=== PATIENT | female | born 1960 | race Caucasian/White ===

== ENCOUNTER 2021-05-23 08:43 | Outpatient (REF) | payer MEDICAID, SELFPAY ==
--- NOTE | ~2021-05-23 | MM_ITS ---
EXAMINATION: MM SCREENING DIGITAL BREAST TOMOSYNTHESIS, BILATERAL CLINICAL INFORMATION: Screening. Asymptomatic. The lifetime risk of breast cancer based on the Tyrer-Cuzick Model is 4.5%. COMPARISON: Mammography: May 31, 2016 and studies dating back to May 19, 2014 TECHNIQUE: Digital breast tomosynthesis is performed in both the craniocaudal and mediolateral oblique views along with computer-aided detection (CAD). Synthesized 2D images are generated from the tomosynthesis. FINDINGS: There are scattered areas of fibroglandular density (ACR BI-RADS breast composition Category b). There are no significant masses, abnormal calcifications, or other abnormalities. MM/MM tomosynthesis screening BI IMPRESSION: There are no significant changes from prior study. ASSESSMENT: BI-RADS 1: Negative RECOMMENDATION: Routine annual mammography screening. This patient's information was entered into a reminder system with a target due date for their next mammogram.
== END 2021-05-23 08:44 | disposition home or self-care (01) ==
LOC: HO.MAMMO 08:43
PROVIDERS: Visit Provider Internal Medicine Geriatric Medicine
DX: Z12.31 Encounter for screening mammogram for malignant neoplasm of breast (principal)
CPT/HCPCS: 77063; 77067

== ENCOUNTER → 2022-04-07 10:51 | Outpatient (BNVA) | payer MEDICAID, SELFPAY | PROVIDERS: PCP Internal Medicine Geriatric Medicine; Visit Provider Orthopaedic Surgery | DX: M65.331 Trigger finger, right middle finger (principal); M65.312 Trigger thumb, left thumb; I26.99 Other pulmonary embolism without acute cor pulmonale | CPT/HCPCS: 99202 ==

== ENCOUNTER → 2022-04-27 13:30 | Day surgery (SDC) | payer MEDICAID, SELFPAY ==
--- NOTE | 2022-04-27 13:49 | PC.NURSE ---
Patient made aware of delay with surgeon & that wait would be approx 2 more hours before she would have procedure. Decision made by patient to cancel at this time & leave hospital. Patient informed to call Dr Alvarez office to reschedule, left waiting room w/ SO.
== END ==
PROVIDERS: PCP Internal Medicine Geriatric Medicine; Visit Provider Orthopaedic Surgery
DX: M65.312 Trigger thumb, left thumb (principal); Z53.29 Procedure and treatment not carried out because of patient's decision for other reasons

== ENCOUNTER 2022-05-18 09:08 | Day surgery (SDC) | payer MEDICAID, SELFPAY ==
--- NOTE | 2022-05-18 07:52 | W.PM.OPN ---
Operative Note Operative Note Date of Service: 05/18/22 Narrative: Operative Note Preop diagnosis: 1. left thumb Trigger finger Postop diagnosis: 1. left thumb Trigger finger Procedure: 1. left thumb A1 isaiah release Surgeon: Tessa Alvarez MD Anesthesia: local block using 1% lidocaine with epinephrine Findings: No locking or catching after A1 isaiah release EBL: Less than 5 mL Tourniquet time: None Specimens: None Complications: None Disposition: Brought to recovery room in stable condition Plan: Follow-up for 10-14 days for wound check and suture removal Indications: The patient is 61 years old, with a left trigger thumb that has been unresponsive to nonoperative management. The risks and benefits of operative treatment including but not limited to risk of damage to blood vessels, nerves, tendons, infection, persistent pain, persistent symptoms, recurrence or possible need for additional surgery were discussed with the patient and the patient wishes to proceed with surgery. Procedure: Once consent was obtained a local block was performed in the preop area using a combination of 1% lidocaine with epinephrine. The patient was then brought back to the operating suite and placed on the operative table in supine position. A tourniquet was applied to the proximal aspect of the left upper extremity and the limb was prepped and draped in a standard surgical fashion. Once assured that we had a good block, a 1.5 cm oblique incision was made centered over the A1 isaiah of the left thumb . The incision was made through the skin to the subcutaneous tissues using a #15 blade. Careful dissection was made down to the level of the A1 isaiah using tenotomy scissors, with care being taken to protect the nearby neurovascular structures. A longitudinal incision was made in the A1 isaiah 1st using a #15 blade, then using tenotomy scissors under direct visualization. The A1 isaiah was noted to be thickened. Following our A1 isaiah release, we no longer saw any locking or catching of the digit with flexion and extension. Once satisfied with our A1 isaiah release the wound was copiously irrigated with normal saline and hemostasis was obtained with a brief period of local pressure. The skin edges were reapproximated with some 5.0 nylon suture material and a sterile dressing was applied. The patient appears to have tolerated the procedure well and with no complications. All digits were well vascularized at the conclusion of the case.
[2022-05-18 10:19] VITALS: BMI 44.4
--- NOTE | 2022-05-18 11:04 | MHC.SHP ---
Pre-Procedural Eval Section A Date of Service: 05/18/22 The patient is an INPATIENT: No Changes since office visit: No Cold of Flu in the past 2 weeks, No New Medical Problems, No Changes in Medication and No Patient answered all questions The History & Physical has been completed within 30 days and I have reviewed it.: Yes Section B Chief Complaint: Trigger thumb, left thumb Allergies: Allergies Allergy/AdvReac Type Severity Reaction Status Date / Time aspirin Allergy Unknown Unknown Verified 04/07/22 11:03 metformin Allergy Unknown unknown Verified 04/07/22 11:03 lisinopril Allergy cough Verified 04/07/22 11:03 seafood Allergy Anaphylaxis Verified 05/18/22 10:15 Plan I have reviewed the history and physical and performed a pertinent physical examination on my patient. No changes have occurred unless specified.
[2022-05-18 11:34] VITALS: BP 146/89; PULSE 75; RESP 18; O2SAT 99
== END 2022-05-18 12:13 ==
LOC: HO.SSS 09:08
PROVIDERS: PCP Internal Medicine Geriatric Medicine; Visit Provider Orthopaedic Surgery
PROC: (CPT 26055; principal; 2022-05-18 10:30)
DX: M65.312 Trigger thumb, left thumb (principal); I10 Essential (primary) hypertension; E11.9 Type 2 diabetes mellitus without complications; G62.9 Polyneuropathy, unspecified; I26.99 Other pulmonary embolism without acute cor pulmonale; Z79.01 Long term (current) use of anticoagulants; Z88.8 Allergy status to other drugs, medicaments and biological substances; Z87.891 Personal history of nicotine dependence
CPT/HCPCS: 26055; J0171

== ENCOUNTER 2022-08-02 13:48 | Outpatient (REF) | payer MEDICAID, SELFPAY ==
--- NOTE | ~2022-08-02 | MM_ITS ---
EXAMINATION: MM SCREENING DIGITAL BREAST TOMOSYNTHESIS, BILATERAL CLINICAL INFORMATION: Screening. Asymptomatic. The lifetime risk of breast cancer based on the Tyrer-Cuzick Model is 4.2%. COMPARISON: Mammography: May 23, 2021 and studies dating back to December 10, 2015 TECHNIQUE: Digital breast tomosynthesis is performed in both the craniocaudal and mediolateral oblique views along with computer-aided detection (CAD). Synthesized 2D images are generated from the tomosynthesis. FINDINGS: There are scattered areas of fibroglandular density (ACR BI-RADS breast composition Category b). There are no new significant masses, abnormal calcifications, or other abnormalities. MM/MM tomosynthesis screening BI IMPRESSION: No significant changes from prior exam. ASSESSMENT: BI-RADS 1: Negative RECOMMENDATION: Routine annual mammography screening. This patient's information was entered into a reminder system with a target due date for their next mammogram.
== END 2022-08-02 13:49 | disposition home or self-care (01) ==
LOC: HO.MAMMO 13:48
PROVIDERS: Visit Provider Internal Medicine Geriatric Medicine
DX: Z12.31 Encounter for screening mammogram for malignant neoplasm of breast (principal)
CPT/HCPCS: 77063; 77067

== ENCOUNTER 2023-03-28 14:15 | Outpatient (REF) | payer MEDICAID, SELFPAY ==
--- NOTE | ~2023-03-28 | XR_ITS ---
EXAMINATION: XR LUMBOSACRAL SPINE CLINICAL INFORMATION: Worsening lower back pain with sciatica. COMPARISON: Abdominal ultrasound dated 03/28/2017; MRI abdomen dated 118. TECHNIQUE: AP and lateral views of the lumbar spine and lateral view of the lumbosacral junction. FINDINGS: There is bony demineralization. Vertebral body heights and alignment are normal. There is mild posterior disc space narrowing at L4-L5 and L5-S1. No acute fracture or spondylolisthesis is seen. There is multi-level marked lower thoracic and mild to moderate lumbar spondylosis. The posterior elements are intact. There is facet arthropathy, most pronounced at L5-S1. The paravertebral soft tissues are unremarkable. A 7 mm left renal calculus is redemonstrated, consistent with prior ultrasound findings. Within the left upper quadrant, a 1.1 cm peripherally calcified splenic artery aneurysm is questioned. There are right upper quadrant surgical clips. XR/XR lumbar spine 2-3V IMPRESSION: 1. There is mild degenerative disc disease at L4-L5 and L5-S1. 2. There is multi-level thoracolumbar spondylosis. 3. There is facet arthropathy at L5-S1. 4. A 7 mm left renal calculus is redemonstrated. 5. A 1.1 cm partially calcified splenic artery aneurysm is questioned.
== END 2023-03-28 14:16 | disposition home or self-care (01) ==
LOC: HO.HHCX 14:15
PROVIDERS: Visit Provider Internal Medicine Geriatric Medicine
DX: M54.42 Lumbago with sciatica, left side (principal); M54.41 Lumbago with sciatica, right side
CPT/HCPCS: 72100

== ENCOUNTER 2023-03-28 14:55 | Outpatient (REF) | payer MEDICAID, SELFPAY ==
[2023-03-28 17:09] LABS: Anion Gap 9 (12-20); Blood Urea Nitrogen 9 mg/dL (9-16); Calcium 8.9 mg/dL (8.4-10.2); Carbon Dioxide 24 mmol/L (22-29); Chloride 108 mmol/L (96-108); Estimated Glomerular Filt Rate > 60; Glucose Random 98 mg/dL (60-115); Potassium 3.8 mmol/L (3.3-5.1); Sodium 137 mmol/L (135-145)
== END 2023-03-28 14:56 | disposition home or self-care (01) ==
LOC: HO.HHCL 14:55
PROVIDERS: Visit Provider Internal Medicine Geriatric Medicine
DX: I10 Essential (primary) hypertension (principal)
CPT/HCPCS: 36415; 80048

== ENCOUNTER 2023-05-24 16:19 | Outpatient (REF) | payer MEDICAID, SELFPAY ==
[2023-05-25 13:12] LABS: BV Int Neg Control Negative (Negative); BV Int Pos Control Positive (Positive)
== END 2023-05-24 16:20 | disposition home or self-care (01) ==
LOC: HO.HHCLNP 16:19
PROVIDERS: Visit Provider Advanced Practice Midwife
DX: N89.8 Other specified noninflammatory disorders of vagina (principal); N39.46 Mixed incontinence
CPT/HCPCS: 87086; 87088; 87186; 87480; 87510; 87660

== ENCOUNTER 2023-09-05 13:13 | Outpatient (AMB) | payer MEDICAID, SELFPAY ==
[2023-09-05 14:02] VITALS: BP 177/89; PULSE 70; RESP 20; O2SAT 98; BMI 45.4
--- NOTE | 2023-09-05 14:02 | MHC.OFFVIS ---
Intake Vital Signs 09/05/23 14:02 Height 5 ft 1 in Weight 240 lb 2 oz BMI 45.4 BP 177/89 H Blood Pressure Location Lt brachial Position Sitting Respiration 20 Pulse 70 Pulse Source Pulse Oximeter Pulse Oximetry (%) 98 Oxygen Delivery Method Room Air Intake Visit Reasons: Low Back Pain with Sciatica - Confirmed Allergies aspirin Allergy (Unknown, Verified 09/05/23 13:56) Unknown metformin Allergy (Unknown, Verified 09/05/23 13:56) unknown lisinopril Allergy (Verified 09/05/23 13:56) cough seafood Allergy (Verified 09/05/23 13:56) Anaphylaxis HPI HPI Comments History of Present Illness Details Cynthia is a very pleasant 63-year-old female who presents the office today, accompanied by her son, for evaluation management of her chronic lower back pain. Patient complains of pain to her lower back with radiation down both legs. She does endorse some burning numbness and tingling to both lower extremities but is known diabetic with diabetic peripheral neuropathy. She denies red flag symptoms including loss of bowel, bladder saddle anesthesia. Her pain today is rated as a 10/10, worse with any movement or activity. Patient has been told in the past that she has multiple herniated discs, though her most recent MRI was greater than 10 years ago. She had a recent x-ray, results as per below. She has attempted physical therapy but that made her pain worse. She is continued to try home exercise program without improvement of her symptoms. She is currently taking Coumadin so she is unable to take nonsteroidal anti-inflammatory medications. Has been taking gabapentin, oxycodone but pain persists. She is tried topical creams and patches without improvement of her symptoms. She was formally a patient of [facility] pain management in [place], she had repeat steroid injections to her back which did help some with the pain but ultimately greatly elevated her blood sugar and at 1 point she was hospitalized for the hyperglycemia. She does not want to proceed with steroid injections. In terms of initial is described as spasming, stabbing, sharp, tingling, pins and needles and throbbing. Pain is constant throughout the day, currently rated as 10/10. Pain is negatively impacting patient's general activity, normal work, enjoyment of life, mobility and recreational activities. Patient is currently taking Coumadin for past medical history of pulmonary embolism. [facility] Medical History Asthma Diabetes High blood pressure On home O2 PILO (obstructive sleep apnea) Pulmonary embolism Social History Patient Tobacco Use Status: Former Tobacco user Current occupational status: disabled Current occupation: rt hand Review of Systems Const All systems reviewed & are unremarkable except as noted in HPI and below Physical Exam Vital Signs: Last Vital Signs Pulse 70 09/05/23 14:02 Resp 20 09/05/23 14:02 BP 177/89 H 09/05/23 14:02 Pulse Ox 98 09/05/23 14:02 Oxygen Delivery Method Room Air 09/05/23 14:02 BMI result Body Mass Index 45.4 General: awake, alert, oriented. Answers questions appropriately. Fully engaged in examination. Appears uncomfortable Skin: warm, dry, intact HEENT: Normocephalic. Hearing intact. Cardiac: External chest normal in appearance. Respiratory: No cough, audible wheezing or stridor. Abdomen: without gross distension. MS: No obvious swelling or deformities. Able to transition from sit to stand unassisted. Ambulates with bilaterally normal heel strike and toe off Bilateral lower extremity strength 5/5 SLR with and without dorsiflexion positive bilaterally Significantly tender over lumbar midline vertebrae and lumbar paraspinal muscles Nontender over PSIS Facet loading positive bilaterally AMANDA negative bilaterally Neurological: Oriented to person, place, time and situation. Thought process intact. No gait abnormalities appreciated. Psychiatric: Appropriate mood and affect. Good judgment and insight. Results Reviewed Results Reviewed: XR/XR lumbar spine 2-3V FINDINGS: There is bony demineralization. Vertebral body heights and alignment are normal. There is mild posterior disc space narrowing at L4-L5 and L5-S1. No acute fracture or spondylolisthesis is seen. There is multi-level marked lower thoracic and mild to moderate lumbar spondylosis. The posterior elements are intact. There is facet arthropathy, most pronounced at L5-S1. The paravertebral soft tissues are unremarkable. A 7 mm left renal calculus is redemonstrated, consistent with prior ultrasound findings. Within the left upper quadrant, a 1.1 cm peripherally calcified splenic artery aneurysm is questioned. There are right upper quadrant surgical clips. IMPRESSION: 1. There is mild degenerative disc disease at L4-L5 and L5-S1. 2. There is multi-level thoracolumbar spondylosis. 3. There is facet arthropathy at L5-S1. 4. A 7 mm left renal calculus is redemonstrated. 5. A 1.1 cm partially calcified splenic artery aneurysm is questioned. Assessment & Plan Assessment & Plan (1) Lumbar spondylosis: Code(s): M47.816 - Spondylosis without myelopathy or radiculopathy, lumbar region (2) Lumbar radiculopathy: Code(s): M54.16 - Radiculopathy, lumbar region (3) Diabetic peripheral neuropathy: Code(s): E11.42 - Type 2 diabetes mellitus with diabetic polyneuropathy Marco A Marie is a very pleasant 63-year-old female who presented to the office today for evaluation management of her chronic lower back pain. History, physical exam and provocative testing consistent with lumbar spondylosis and lumbar radiculopathy Patient has exhausted conservative treatment including physical therapy, home exercise program, [id number] medications, topical medications, muscle relaxers, prescription opioids and cortisone injections. Recent x-ray reviewed. Given patient's worsening back pain with radiation down both legs, SLR positive bilaterally, MRI of the lumbar spine ordered for further evaluation. She requests open MRI at [facility] as she lives in [place] her son is her transportation to appointments Patient will follow-up for review of MRI to evaluate the plan. Discussed option for bilateral diagnostic L3-L4 DR L5 MBB with local anesthetic, potential for RFA if good results. Patient has known diabetic, most recent A1c was in February 2023 of 7.9. Previous attempts at steroid injections caused hospitalization due to significantly elevated sugars. She does not want to proceed with anything that would require steroids. Patient is currently taking Coumadin for history of pulmonary embolisms. She would need clearance prior to proceeding with any injections or procedures All questions and concerns were answered, patient agrees with the plan. Follow-up after MRI, sooner if needed. Orders: Orders MR lumbar spine wo con Today M47.816 - Spondylosis without myelopathy or radiculopathy, lumbar region, M54.16 - Radiculopathy, lumbar region Coding Level of Care Code New Pt Level 4 (11884) Diagnoses Lumbar spondylosis M47.816 Lumbar radiculopathy M54.16 Diabetic peripheral neuropathy E11.42
== END 2023-09-05 14:34 | disposition home or self-care (01) ==
PROVIDERS: PCP Internal Medicine Geriatric Medicine; Visit Provider Registered Nurse Emergency
DX: M47.816 Spondylosis without myelopathy or radiculopathy, lumbar region (principal); M54.16 Radiculopathy, lumbar region; E11.42 Type 2 diabetes mellitus with diabetic polyneuropathy
CPT/HCPCS: 99204

== ENCOUNTER → 2023-09-05 13:13 | Outpatient (BNVA) | payer MEDICAID, SELFPAY | PROVIDERS: PCP Internal Medicine Geriatric Medicine; Visit Provider Registered Nurse Emergency | DX: M47.816 Spondylosis without myelopathy or radiculopathy, lumbar region (principal); M54.16 Radiculopathy, lumbar region; E11.42 Type 2 diabetes mellitus with diabetic polyneuropathy | CPT/HCPCS: 99212 ==

== ENCOUNTER 2023-09-28 10:44 | Outpatient (AMB) | payer MEDICAID, SELFPAY ==
--- NOTE | 2023-09-28 10:51 | MHC.OFFVIS ---
Intake Vital Signs 09/28/23 10:52 Height 5 ft 1 in Weight 243 lb BMI 45.9 BP 161/84 H Blood Pressure Location Lt radial Position Sitting Respiration 20 Pulse 84 Pulse Source Pulse Oximeter Pulse Oximetry (%) 97 Oxygen Delivery Method Room Air Intake Visit Reasons: MRI Results (Completed at [facility]) Allergies aspirin Allergy (Unknown, Verified 09/28/23 10:52) Unknown metformin Allergy (Unknown, Verified 09/28/23 10:52) unknown lisinopril Allergy (Verified 09/28/23 10:52) cough seafood Allergy (Verified 09/28/23 10:52) Anaphylaxis HPI HPI Comments History of Present Illness Details Patient presents to the office today, accompanied by her family, for follow-up and review of recent MRI. MRI reviewed, results as per below Patient continues with 10/10 lower back pain, midline axial. She does report some burning, numbness and tingling to both lower extremities she is diabetic with diabetic neuropathy. Denies red flag symptoms including loss of bowel, bladder or saddle anesthesia Patient currently on Coumadin, unable to take nonsteroidal anti-inflammatory medications. She has tried physical therapy and home exercise program which she was unable to tolerate it because it caused worsening pain. She was given a back brace and was unable to tolerate use of that also secondary to worsening pain. Previously underwent steroid injections at [facility] pain management but they cause significantly elevated blood sugars and required hospitalization. At [facility] she required injections to be performed under sedation. Prior: Cynthia is a very pleasant 63-year-old female who presents the office today, accompanied by her family, for evaluation management of her chronic lower back pain. Patient complains of pain to her lower back with radiation down both legs. She does endorse some burning numbness and tingling to both lower extremities but is known diabetic with diabetic peripheral neuropathy. She denies red flag symptoms including loss of bowel, bladder saddle anesthesia. Her pain today is rated as a 10/10, worse with any movement or activity. Patient has been told in the past that she has multiple herniated discs, though her most recent MRI was greater than 10 years ago. She had a recent x-ray, results as per below. She has attempted physical therapy but that made her pain worse. She is continued to try home exercise program without improvement of her symptoms. She is currently taking Coumadin so she is unable to take nonsteroidal anti-inflammatory medications. Has been taking gabapentin, oxycodone but pain persists. She is tried topical creams and patches without improvement of her symptoms. She was formally a patient of [facility] pain management in [place], she had repeat steroid injections to her back which did help some with the pain but ultimately greatly elevated her blood sugar and at 1 point she was hospitalized for the hyperglycemia. She does not want to proceed with steroid injections. In terms of initial is described as spasming, stabbing, sharp, tingling, pins and needles and throbbing. Pain is constant throughout the day, currently rated as 10/10. Pain is negatively impacting patient's general activity, normal work, enjoyment of life, mobility and recreational activities. Patient is currently taking Coumadin for past medical history of pulmonary embolism. [facility] Medical History Asthma Diabetes High blood pressure On home O2 PILO (obstructive sleep apnea) Pulmonary embolism Social History Patient Tobacco Use Status: Former Tobacco user Current occupational status: disabled Current occupation: rt hand Review of Systems Const All systems reviewed & are unremarkable except as noted in HPI and below Physical Exam Vital Signs: Last Vital Signs Pulse 84 09/28/23 10:52 Resp 20 09/28/23 10:52 BP 161/84 H 09/28/23 10:52 Pulse Ox 97 09/28/23 10:52 Oxygen Delivery Method Room Air 09/28/23 10:52 BMI result Body Mass Index 45.9 General: awake, alert, oriented. Answers questions appropriately. Fully engaged in examination. Appears uncomfortable Skin: warm, dry, intact HEENT: Normocephalic. Hearing intact. Cardiac: External chest normal in appearance. Respiratory: No cough, audible wheezing or stridor. Abdomen: without gross distension. MS: No obvious swelling or deformities. Able to transition from sit to stand unassisted. Ambulates with bilaterally normal heel strike and toe off Bilateral lower extremity strength 5/5 Facet loading positive bilaterally Neurological: Oriented to person, place, time and situation. Thought process intact. Psychiatric: Appropriate mood and affect. Good judgment and insight. Results Reviewed Results Reviewed: 09/13/2023 Assessment & Plan Assessment & Plan (1) Lumbar spondylosis: Code(s): M47.816 - Spondylosis without myelopathy or radiculopathy, lumbar region (2) Lumbar radiculopathy: Code(s): M54.16 - Radiculopathy, lumbar region (3) Diabetic peripheral neuropathy: Code(s): E11.42 - Type 2 diabetes mellitus with diabetic polyneuropathy Marco A Marie is a very pleasant 63-year-old female who presented back to the office today for follow-up, review recent MRI History, physical exam and provocative testing consistent with lumbar spondylosis Patient has exhausted conservative treatment including physical therapy, home exercise program, [id number] medications, topical medications, muscle relaxers, prescription opioids and cortisone injections. Discussed option for bilateral diagnostic L3-L4 DR L5 MBB with local anesthetic under sedation, potential for RFA if good results. Patient has known diabetic, most recent A1c was in February 2023 of 7.9. Previous attempts at steroid injections caused hospitalization due to significantly elevated sugars. She does not want to proceed with anything that would require steroids. She required sedation for previous procedures, procedures here also be done under sedation. Patient is currently taking Coumadin for history of pulmonary embolisms. She would need clearance prior to proceeding with any injections or procedures All questions and concerns were answered, patient agrees with the plan. Follow-up after injections, sooner if needed. Coding Level of Care Code Est Pt Level 3 (04053) Diagnoses Lumbar spondylosis M47.816 Lumbar radiculopathy M54.16 Diabetic peripheral neuropathy E11.42
[2023-09-28 10:52] VITALS: BP 161/84; PULSE 84; RESP 20; O2SAT 97; BMI 45.9
== END 2023-09-28 11:15 | disposition home or self-care (01) ==
PROVIDERS: PCP Internal Medicine Geriatric Medicine; Visit Provider Registered Nurse Emergency
DX: M47.816 Spondylosis without myelopathy or radiculopathy, lumbar region (principal); M54.16 Radiculopathy, lumbar region; E11.42 Type 2 diabetes mellitus with diabetic polyneuropathy
CPT/HCPCS: 99213

== ENCOUNTER → 2023-09-28 10:44 | Outpatient (BNVA) | payer MEDICAID, SELFPAY | PROVIDERS: PCP Internal Medicine Geriatric Medicine; Visit Provider Registered Nurse Emergency | DX: M47.26 Other spondylosis with radiculopathy, lumbar region (principal); E11.42 Type 2 diabetes mellitus with diabetic polyneuropathy; I26.99 Other pulmonary embolism without acute cor pulmonale; Z79.01 Long term (current) use of anticoagulants; Z99.81 Dependence on supplemental oxygen | CPT/HCPCS: 99212 ==

== ENCOUNTER 2023-10-19 12:44 | Outpatient (REF) | payer MEDICAID, SELFPAY ==
[2023-10-19 16:29] LABS: MANUAL DIFF FLAG NO
[2023-10-19 16:37] LABS: Basophils Absolute Auto 0.1 X10*3/uL (0.0-0.2); Basophils Percent Auto 0.6 % (0-2); Eosinophils Absolute Auto 0.2 X10*3/uL (0.0-0.4); Eosinophils Percent Auto 2.1 % (0-4); Hematocrit 40.5 % (37.0-47.0); Hemoglobin 12.9 g/dl (12.0-16.0); Imm Gran Abs Auto 0.04 X10*3/uL (0.00-0.03); Imm Gran Pct Auto 0.5 % (0.0-0.4); Lymphocytes Absolute Auto 3.4 X10*3/uL (1.2-4.9); Lymphocytes Percent Auto 39.8 % (20-40); Mean Corpuscular HGB Conc 31.9 g/dl (31.0-35.0); Mean Corpuscular Hemoglobin 27.4 pg (27.0-33.0); Mean Corpuscular Volume 86.2 fL (80.0-98.0); Mean Platelet Volume 9.7 fL (9.4-12.3); Monocytes Absolute Auto 0.8 X10*3/uL (0.1-1.2); Monocytes Percent Auto 9.1 % (2-11); Neutrophils Absolute Auto 4.1 x10*3/uL (2.0-8.3); Neutrophils Percent Auto 47.9 % (45-73); Platelet Count 354 X10*3/uL (160-400); Red Cell Distribution Width 14.1 % (11.0-16.0); White Blood Count 8.5 X10*3/uL (4.8-10.8)
[2023-10-19 17:09] LABS: Alanine Aminotransferase 13 U/L (0-31); Albumin Level 3.6 g/dL (3.5-5.0); Alkaline Phosphatase 96 U/L (39-117); Anion Gap 13 (12-20); Aspartate Amino Transferase 14 U/L (5-31); Bilirubin Total 0.3 mg/dL (0.0-1.0); Blood Urea Nitrogen 14 mg/dL (9-16); Calcium 9.6 mg/dL (8.4-10.2); Carbon Dioxide 24 mmol/L (22-29); Chloride 105 mmol/L (96-108); Cholesterol 227 mg/dL (<200); Estimated Glomerular Filt Rate > 60; Glucose Random 105 mg/dL (60-115); HDL Cholesterol 43 mg/dL (>40); LDL Cholesterol Calculated 156 mg/dL (<100); Potassium 4.3 mmol/L (3.3-5.1); Sodium 138 mmol/L (135-145); Total Protein 8.5 g/dL (6.5-8.0); Triglycerides 142 mg/dL (<150)
[2023-10-19 17:14] LABS: Creatinine Urine 120.05 mg/dL; Microalbum/Creatinine Ratio Ur 157.4 ug/mg cr (<30)
== END 2023-10-19 12:45 | disposition home or self-care (01) ==
LOC: HO.HHCL 12:44
PROVIDERS: Visit Provider Internal Medicine Geriatric Medicine
DX: E11.69 Type 2 diabetes mellitus with other specified complication (principal); Z79.4 Long term (current) use of insulin
CPT/HCPCS: 36415; 80053; 80061; 82043; 82570; 85025

== ENCOUNTER 2023-11-09 10:30 | Day surgery (SDC) | payer MEDICAID, SELFPAY ==
--- NOTE | 2023-11-08 11:42 | HO.ANESPROP2 ---
Documented by User: Viridiana Shah NP 11/08/23 11:44 HPI - Anesthesia Eval Consult details Narrative: 63yo F for Bilateral Diagnostic L3-L4-DR L5 Medial Branch Block Coumadin for PE PILO with O2 @ 2L QHS PMFSH Active Problems Active Problems: All Active Problems Diabetic peripheral neuropathy (Acute) Lumbar radiculopathy (Acute) Lumbar spondylosis (Acute) Trigger thumb, left thumb (Acute) Trigger finger, right middle finger (Acute) Past Medical History Medical History Asthma Diabetes High blood pressure On home O2 PILO (obstructive sleep apnea) Pulmonary embolism Social History Social History Patient Tobacco Use Status: Former Tobacco user Use of substances other than those prescribed or required for medical reasons: No Are you DNR?: No Advance Directives: No Advance Directives Information Provided: Yes Current occupational status: disabled Current occupation: rt hand Meds Allergies Allergy/AdvReac Type Severity Reaction Status Date / Time aspirin Allergy Unknown Unknown Verified 09/28/23 10:52 metformin Allergy Unknown unknown Verified 09/28/23 10:52 lisinopril Allergy cough Verified 09/28/23 10:52 seafood Allergy Anaphylaxis Verified 09/28/23 10:52 Home Medications ?Medication ?Instructions ?Recorded ?Confirmed ?Last Taken ?Type atorvastatin 40 mg tablet 40 mg PO DAILY 04/07/22 Unknown History eszopiclone 3 mg tablet 3 mg PO BEDTIME 04/07/22 Unknown History gabapentin 300 mg capsule 300 mg PO DAILY 04/07/22 Unknown History insulin degludec 200 unit/mL (3 56 unit subcut BID 04/07/22 Unknown History mL) subcutaneous pen (Tresiba FlexTouch U-200 insulin) insulin lispro 100 unit/mL 1 sliding scale dose subcut 04/07/22 Unknown History subcutaneous cartridge (Humalog USEASDIRECTD U-100 Insulin) lorazepam 0.5 mg tablet 0.5 mg PO DAILY PRN 04/07/22 Unknown History losartan 50 mg tablet 50 mg PO DAILY 04/07/22 Unknown History omeprazole 20 mg capsule,delayed 20 mg PO DAILY 04/07/22 Unknown History release warfarin 5 mg tablet 5 mg PO DAILY 04/07/22 Unknown History oxycodone 10 mg tablet 10 mg PO BID PRN 02/21/24 Unknown History warfarin 1 mg tablet 1 mg PO DAILY 09/05/23 Unknown History Exam Pertinent Lab Results Pertinent Lab Results: Laboratory Tests 10/19/23 12:48 WBC 8.5 Hgb 12.9 Hct 40.5 Plt Count 354 Sodium 138 Potassium 4.3 Chloride 105 Carbon Dioxide 24 BUN 14 Creatinine 0.72 Assessment and Plan Assessment Anesthesia Assessment: Chart Reviewed Documented by User: Eder Wynn MD 11/09/23 11:01 [facility] Past Medical History Medical History Asthma Diabetes High blood pressure On home O2 PILO (obstructive sleep apnea) Pulmonary embolism Family History Family history of problems with anesthesia: No Surgical History History of Problems with Anesthesia: No Social History Social History Patient Tobacco Use Status: Former Tobacco user Use of substances other than those prescribed or required for medical reasons: No Are you DNR?: No Advance Directives: No Advance Directives Information Provided: Yes Current occupational status: disabled Current occupation: rt hand Meds Allergies Allergy/AdvReac Type Severity Reaction Status Date / Time aspirin Allergy Unknown Unknown Verified 09/28/23 10:52 metformin Allergy Unknown unknown Verified 09/28/23 10:52 lisinopril Allergy cough Verified 09/28/23 10:52 seafood Allergy Anaphylaxis Verified 09/28/23 10:52 Home Medications ?Medication ?Instructions ?Recorded ?Confirmed ?Last Taken ?Type atorvastatin 40 mg tablet 40 mg PO DAILY 04/07/22 Unknown History eszopiclone 3 mg tablet 3 mg PO BEDTIME 04/07/22 Unknown History gabapentin 300 mg capsule 300 mg PO DAILY 04/07/22 Unknown History insulin degludec 200 unit/mL (3 56 unit subcut BID 04/07/22 Unknown History mL) subcutaneous pen (Tresiba FlexTouch U-200 insulin) insulin lispro 100 unit/mL 1 sliding scale dose subcut 04/07/22 Unknown History subcutaneous cartridge (Humalog USEASDIRECTD U-100 Insulin) lorazepam 0.5 mg tablet 0.5 mg PO DAILY PRN 04/07/22 Unknown History losartan 50 mg tablet 50 mg PO DAILY 04/07/22 Unknown History omeprazole 20 mg capsule,delayed 20 mg PO DAILY 04/07/22 Unknown History release warfarin 5 mg tablet 5 mg PO DAILY 04/07/22 Unknown History oxycodone 10 mg tablet 10 mg PO BID PRN 09/05/23 Unknown History warfarin 1 mg tablet 1 mg PO DAILY 09/05/23 Unknown History Exam Airway Mallampati Class: IV TM Dist: <=3cm Neck ROM: Full Loose/Missing/Broken Teeth: Yes (broken 13) Heart: rrr Lungs: cta Assessment and Plan Assessment Anesthesia Assessment: Anesthesia Plan Discussed Final Anesthetic Review Family History of Problems with Anesthesia: No History of Problems with Anesthesia: No NPO: Yes ASA Class: III Final Preanesthetic Review: No Changes in Pt Med Stat, Meds/Allgs Chart Reviewed, Consent Obtained/Reviewed and Anes Risks/Benef Reviewed Patient Risk: Intermediate Procedure Risk: Low Anesthetic Plan Anesthetic Plan: MAC: Disposition: Standard PACU
[2023-11-09] VITALS (9 sets, daily range): BP systolic 117–149; BP diastolic 60–86; PULSE 68–81; RESP 13–20; TEMP 36–36.3; O2SAT 94–97; BMI 47.2
--- NOTE | ~2023-11-09 | FL_ITS ---
EXAMINATION: XR FLUOROSCOPY WITH IMAGES CLINICAL INFORMATION: L5 nerve block COMPARISON: 03/28/2023 TECHNIQUE: Fluoroscopy Supervised By: Physician. Fluoroscopy Time: 0.7 minutes. Cumulative Dose: 25.9 mGy. DAP: 5.62 Gycm2. Images: 5. FINDINGS: Fluoroscopy is provided which shows the needle tip overlying the right L5 facet region. Some contrast has been injected. FL/FL guidance in OR IMPRESSION: Fluoroscopy as described.
--- NOTE | 2023-11-09 10:55 | MHC.SHP ---
Pre-Procedural Eval Section A - 24 Hr Update-Section A only Date of Service: 11/09/23 Changes since office visit: Yes Patient answered all questions The patient has been examined within 24 hours of the surgical procedure. The History & Physical has been completed within 30 days and I have reviewed it.: No Section B - Complete if H&P > 30 days Chief Complaint: Spondylosis without myelopathy or radiculopathy, Details of Present Illness: As above Relevant Family History (Specify if Yes): No Relevant Social History: None Present Medications: see Short Stay Collaborative assessment Medical History: No relevant PMH History of Previous Operations: No relevant previous surgery Allergies: Allergies Allergy/AdvReac Type Severity Reaction Status Date / Time aspirin Allergy Unknown Unknown Verified 09/28/23 10:52 metformin Allergy Unknown unknown Verified 09/28/23 10:52 lisinopril Allergy cough Verified 09/28/23 10:52 seafood Allergy Anaphylaxis Verified 09/28/23 10:52 Review of Systems Sugical H&P ROS: Negative: Cardiovascular, Respiratory, Neurological, Psychiatric, Hem-Onc, Allergic/Immunologic, Gastrointestinal, Genitourinary, Integumentary and Eyes/Ears/Nose/Throat and Yes, Specify: Constitution (Morbid obesity), Musculoskeletal (Spondylosis lumbar) and Endocrine (Diabetes type 2) Exam Surgical H&P Exam: Normal: HEENT, Normal: Heart, Normal: Lungs, Normal: Extremities, Normal: Skin and Normal: Neurological and Significant Findings: Abdomen (Enlarged due to fat) Plan I have reviewed the history and physical and performed a pertinent physical examination on my patient. No changes have occurred unless specified. Time Spent With Patient Time: Total time managing care of this patient today __5__ minutes.
[2023-11-09] MEDS: Lactated Ringers 1,000 ML 100 ML IVCONT (11:15)
[2023-11-09 11:16] LABS: Glucose, Whole Blood 130 mg/dL (60-115)
[2023-11-09 11:31] LABS: INTERNATIONAL NORM RATIO 1.1 (0.9-1.1); Prothrombin Time 13.8 SEC (11.1-13.3)
--- NOTE | 2023-11-09 12:59 | PM.OP ---
Brief Operative Note Date of Service: 11/09/23 Pre-op diagnosis: Spondylosis lumbar without myelopathy or radiculopathy Post-op diagnosis: same Procedure: Diagnostic medial branch block L3-L4 does ramus L5 bilateral Surgeon: Caldeorn Troncoso MD Anesthesia: MAC Was an Swimming Pool Serviceperson used for this Procedure?: No Estimated blood loss (mL): 1 Condition: stable Disposition: PACU
--- NOTE | 2023-11-09 13:00 | W.PM.OPN ---
Operative Note Operative Note Date of Service: 11/09/23 Narrative: Diagnostic medial branch block L3,L4 dorsal ramus L5 bilateral.? ? ?Informed consent was explained to the patient. All questions were explained and? answered.? The patient was taken inside the operating room where she was positioned prone on the operating table. [employer] [place] [employer] monitors were applied and patient was minimally sedated. Time-out was performed delineating correct site, side, the nature of the procedure, patient's allergy, . All operating room staff was participating in OR time-out procedure. ? ? The lower back was prepped with ChloraPrep and draped with sterile towels.? C-arm was brought over the operating field and sq picture of L4-, L5 vertebra and S1 AREA were delineated on the screen.? Point of interest were delineated as confluence of superior articular process of L4 and L5 vertebra bilaterally with corresponding transverse processes as well as confluence of the sacral alae bilaterally with superior articular process of S1.? The projection of the point of interest to the skin were injected with the small amount of local anesthetic lidocaine 2% 1-1.5 cc.? After that 22 gauge 3.5 inch spinal needle was driven sequentially to the points of interest in tunnel vision fashion. After needles gently contacted the bone at the point of interests the needle was injected with small amount of the contrast.? The injection of the contrast did not demonstrate any intravascular or intrathecal spread of the contrast.? After that injection of the? ropivacaine 0.5%-1cc was performed at each needle location.??after that the needles were removed and Bandaids were applied. ? Upon completion of the injections? needle was? removed and sterile Band-Aids were applied.? The patient tolerated procedure very well.
[2023-11-09] MEDS: fentaNYL citrate/PF 100 MCG/2 ML VIAL 25 MCG IVPUSH ×4 (13:48→14:07)
[2023-11-09] MEDS: Acetaminophen 325 MG TABLET 650 MG PO (14:15)
== END 2023-11-09 14:40 | disposition home or self-care (01) ==
PROVIDERS: Nurse Practitioner; Registered Nurse Emergency; PCP Internal Medicine Geriatric Medicine; Visit Provider Anesthesiology
PROC: (CPT 64493; principal; 2023-11-09 11:30)
DX: M47.816 Spondylosis without myelopathy or radiculopathy, lumbar region (principal); M54.16 Radiculopathy, lumbar region; G89.29 Other chronic pain; R20.0 Anesthesia of skin; R20.2 Paresthesia of skin; R20.8 Other disturbances of skin sensation; I10 Essential (primary) hypertension; G47.33 Obstructive sleep apnea (adult) (pediatric); J45.909 Unspecified asthma, uncomplicated; Z86.711 Personal history of pulmonary embolism; E11.42 Type 2 diabetes mellitus with diabetic polyneuropathy; Z79.4 Long term (current) use of insulin; Z79.01 Long term (current) use of anticoagulants; Z99.81 Dependence on supplemental oxygen; Z79.899 Other long term (current) drug therapy; Z88.8 Allergy status to other drugs, medicaments and biological substances; Z87.891 Personal history of nicotine dependence
CPT/HCPCS: 64493; 64494; 36415; 82947; 85610; J2704; J2795; J3010; Q9967

== ENCOUNTER → 2023-11-09 10:30 | Outpatient (BNV) | payer MEDICAID, SELFPAY | PROVIDERS: PCP Internal Medicine Geriatric Medicine; Visit Provider Anesthesiology | DX: M47.816 Spondylosis without myelopathy or radiculopathy, lumbar region (principal) | CPT/HCPCS: 64493; 64494 ==

== ENCOUNTER 2023-11-16 09:57 | Outpatient (AMB) | payer MEDICAID, SELFPAY ==
[2023-11-16 10:06] VITALS: BP 162/78; PULSE 80; RESP 16; O2SAT 97; BMI 49.4
--- NOTE | 2023-11-16 10:06 | A.OFFVIS_ITS ---
Vital Signs 3 11/16/23 10:06 Height 4 ft 11 in Weight 244 lb 8 oz BMI 49.4 BP 162/78 H Blood Pressure Location Lt brachial Position Sitting Respiration 16 Pulse 80 Pulse Source Pulse Oximeter Pulse Oximetry (%) 97 Oxygen Delivery Method Room Air Intake Visit Reasons: S/p B/l Dx L3-L4 -DR L5 MBBs 11/09/23 Allergies aspirin Allergy (Unknown, Verified 11/16/23 10:06) Unknown metformin Allergy (Unknown, Verified 11/16/23 10:06) unknown lisinopril Allergy (Verified 11/16/23 10:06) cough seafood Allergy (Verified 11/16/23 10:06) Anaphylaxis HPI Comments Details: Patient presents back to the office today for follow-up, 1 week status post bilateral diagnostic L3-L4 DR L5 medial branch blocks. She states that after the procedure she feels like her pain is worse. She does not feel like there was any numbness to the area after the procedure. She continues taking her gabapentin and oxycodone but states they do not help Has lidocaine patches at home but has not been using them. She is unable to take nonsteroidal anti-inflammatory medications due to being on Coumadin. PT in the past was not helpful, she ended up having to be transported by ambulance from the physical therapy office to the emergency room. She did find some relief with steroid injections that were given at [facility] but her blood sugar became significantly elevated requiring treatment in the emergency room. Today patient is also complaining of bilateral knee pain, right worse than left. She has had steroid injections the past by Orthopedics. She would like to be referred back to [place] orthopedic surgeons. Prior: Patient presents to the office today, accompanied by her family, for follow-up and review of recent MRI. MRI reviewed, results as per below Patient continues with 10/10 lower back pain, midline axial. She does report some burning, numbness and tingling to both lower extremities she is diabetic with diabetic neuropathy. Denies red flag symptoms including loss of bowel, bladder or saddle anesthesia Patient currently on Coumadin, unable to take nonsteroidal anti-inflammatory medications. She has tried physical therapy and home exercise program which she was unable to tolerate it because it caused worsening pain. She was given a back brace and was unable to tolerate use of that also secondary to worsening pain. Previously underwent steroid injections at [facility] but they cause significantly elevated blood sugars and required hospitalization. At [facility] she required injections to be performed under sedation. Prior: Cynthia is a very pleasant 63-year-old female who presents the office today, accompanied by her family, for evaluation management of her chronic lower back pain. Patient complains of pain to her lower back with radiation down both legs. She does endorse some burning numbness and tingling to both lower extremities but is known diabetic with diabetic peripheral neuropathy. She denies red flag symptoms including loss of bowel, bladder saddle anesthesia. Her pain today is rated as a 10/10, worse with any movement or activity. Patient has been told in the past that she has multiple herniated discs, though her most recent MRI was greater than 10 years ago. She had a recent x-ray, results as per below. She has attempted physical therapy but that made her pain worse. She is continued to try home exercise program without improvement of her symptoms. She is currently taking Coumadin so she is unable to take nonsteroidal anti- inflammatory medications. Has been taking gabapentin, oxycodone but pain persists. She is tried topical creams and patches without improvement of her symptoms. She was formally a patient of [facility] in [place], she had repeat steroid injections to her back which did help some with the pain but ultimately greatly elevated her blood sugar and at 1 point she was hospitalized for the hyperglycemia. She does not want to proceed with steroid injections. In terms of initial is described as spasming, stabbing, sharp, tingling, pins and needles and throbbing. Pain is constant throughout the day, currently rated as 10/10. Pain is negatively impacting patient's general activity, normal work, enjoyment of life, mobility and recreational activities. Patient is currently taking Coumadin for past medical history of pulmonary embolism. [facility] Medical History Asthma Diabetes High blood pressure On home O2 PILO (obstructive sleep apnea) Pulmonary embolism Social History Patient Tobacco Use Status: Former Tobacco user Current occupational status: disabled Current occupation: rt hand Review of Systems Const All systems reviewed & are unremarkable except as noted in HPI and below Physical Exam Vital Signs: Last Vital Signs Pulse 80 11/16/23 10:06 Resp 16 11/16/23 10:06 BP 162/78 H 11/16/23 10:06 Pulse Ox 97 11/16/23 10:06 Oxygen Delivery Method Room Air 11/16/23 10:06 BMI result Body Mass Index 49.4 General: awake, alert, oriented. Answers questions appropriately. Fully engaged in examination. Appears uncomfortable Skin: warm, dry, intact HEENT: Normocephalic. Hearing intact. Cardiac: External chest normal in appearance. Respiratory: No cough, audible wheezing or stridor. Abdomen: without gross distension. MS: No obvious swelling or deformities. Able to transition from sit to stand unassisted. Ambulates with bilaterally normal heel strike and toe off Bilateral lower extremity strength 5/5 Facet loading positive bilaterally Tenderness midline lumbar vertebrae, lumbar paraspinal muscles Neurological: Oriented to person, place, time and situation. Thought process intact. Psychiatric: Appropriate mood and affect. Good judgment and insight. Results Reviewed Results Reviewed: 09/13/2023 Assessment & Plan Assessment & Plan (1) Bilateral knee pain: Code(s): M25.561 - Pain in right knee; M25.562 - Pain in left knee Category: Medical (2) Lumbar spondylosis: Code(s): M47.816 - Spondylosis without myelopathy or radiculopathy, lumbar region Category: Medical (3) Lumbar radiculopathy: Code(s): M54.16 - Radiculopathy, lumbar region Category: Medical (4) Diabetic peripheral neuropathy: Code(s): E11.42 - Type 2 diabetes mellitus with diabetic polyneuropathy Category: Medical Plan Cynthia is a very pleasant 63-year-old female who presented back to the office today for follow-up 1 week status post bilateral diagnostic L3-L4 DR L5 medial branch blocks She reports no improvement of her pain after the procedure. Patient has exhausted conservative treatment including physical therapy, home exercise program, ynrx-gjq-gnztrkt medications, topical medications, muscle relaxers, prescription opioids and cortisone injections. Discussed diagnosis and options for treatment. Patient continues to decline steroid injections due to previous injections resulting in elevated blood sugars and hospitalization. Discussed bilateral L3 Sprint PNS trial, if patient reports good results could proceed with Curonix PNS device. Patient is currently taking Coumadin for history of pulmonary embolisms. She would need clearance prior to proceeding with any injections or procedures All questions and concerns were answered, patient agrees with the plan. Follow-up after injections, sooner if needed. Orders: Referrals 2 Orthopedics Referral M25.561 - Pain in right knee, M25.562 - Pain in left knee Coding Level of Care Code Est Pt Level 3 (85688) Diagnoses Bilateral knee pain M25.561; M25.562 Lumbar spondylosis M47.816 Lumbar radiculopathy M54.16 Diabetic peripheral neuropathy E11.42
== END 2023-11-16 10:30 | disposition home or self-care (01) ==
PROVIDERS: PCP Internal Medicine Geriatric Medicine; Visit Provider Registered Nurse Emergency
DX: M25.561 Pain in right knee (principal); M25.562 Pain in left knee; M47.816 Spondylosis without myelopathy or radiculopathy, lumbar region; M54.16 Radiculopathy, lumbar region; E11.42 Type 2 diabetes mellitus with diabetic polyneuropathy
CPT/HCPCS: 99213

== ENCOUNTER → 2023-11-16 09:57 | Outpatient (BNVA) | payer MEDICAID, SELFPAY | PROVIDERS: PCP Internal Medicine Geriatric Medicine; Visit Provider Registered Nurse Emergency | DX: M25.561 Pain in right knee (principal); M25.562 Pain in left knee; M47.26 Other spondylosis with radiculopathy, lumbar region; E11.42 Type 2 diabetes mellitus with diabetic polyneuropathy; Z98.890 Other specified postprocedural states | CPT/HCPCS: 99212 ==

== ENCOUNTER 2024-01-28 14:54 | Outpatient (REF) | payer MEDICAID, SELFPAY ==
--- NOTE | ~2024-01-28 | XR_ITS ---
EXAMINATION: XR SHOULDER, RIGHT XR SHOULDER, LEFT CLINICAL INFORMATION: Chronic pain of both shoulders. COMPARISON: Radiograph dated 02/07/2018. TECHNIQUE: AP external rotation, Grashey, scapular Y, and axillary views of each shoulder. FINDINGS: RIGHT SHOULDER: There is mjhnvgao-jp-ecteyd acromioclavicular osteoarthritis. Mild glenohumeral osteoarthritis with small marginal osteophytes of the glenoid. No fracture. Alignment is anatomic. Soft tissues are normal with no abnormal calcifications. LEFT SHOULDER: There is orwnavxb-wi-ieurww acromioclavicular osteoarthritis. Mild glenohumeral osteoarthritis with marginal osteophytes at the glenoid. No fracture. Alignment is anatomic. Anterior subacromial spurs. Soft tissues are normal with no abnormal calcifications. XR/XR shoulder LT min 2V IMPRESSION: 1. Xiahqmnu-mj-ugpwxa acromioclavicular osteoarthritis bilaterally. 2. Mild glenohumeral osteoarthritis bilaterally. 3. Anterior subacromial spurs at the left shoulder.
--- NOTE | ~2024-01-28 | XR_ITS ---
EXAMINATION: XR KNEE, RIGHT CLINICAL INFORMATION: Right knee pain. COMPARISON: None available. TECHNIQUE: Three views of the right knee. Technologist unable to obtain all these due to patient body habitus. FINDINGS: Diffuse demineralization. Extensive vascular calcification. Mild periosteal reaction along the proximal medial shaft of the tibia. Moderate to marked narrowing of the medial compartment with medial marginal osteophytes. Small posterior patellar and lateral marginal osteophytes. Joint effusion. XR/XR knee RT 4V IMPRESSION: 1. Bfcukhii-ga-gfhxqh degenerative changes medial compartment. 2. Mild periosteal reaction along the proximal medial shaft of the tibia.
--- NOTE | ~2024-01-28 | XR_ITS ---
EXAMINATION: XR SHOULDER, RIGHT XR SHOULDER, LEFT CLINICAL INFORMATION: Chronic pain of both shoulders. COMPARISON: Radiograph dated 02/07/2018. TECHNIQUE: AP external rotation, Grashey, scapular Y, and axillary views of each shoulder. FINDINGS: RIGHT SHOULDER: There is lulparbz-tl-buwnqv acromioclavicular osteoarthritis. Mild glenohumeral osteoarthritis with small marginal osteophytes of the glenoid. No fracture. Alignment is anatomic. Soft tissues are normal with no abnormal calcifications. LEFT SHOULDER: There is luqqprns-jw-rikyfn acromioclavicular osteoarthritis. Mild glenohumeral osteoarthritis with marginal osteophytes at the glenoid. No fracture. Alignment is anatomic. Anterior subacromial spurs. Soft tissues are normal with no abnormal calcifications. XR/XR shoulder RT min 2V IMPRESSION: 1. Zmbwovby-nc-ljyavw acromioclavicular osteoarthritis bilaterally. 2. Mild glenohumeral osteoarthritis bilaterally. 3. Anterior subacromial spurs at the left shoulder.
== END 2024-01-28 14:55 | disposition home or self-care (01) ==
LOC: HO.HHCX 14:54
PROVIDERS: Visit Provider Internal Medicine Geriatric Medicine
DX: M25.561 Pain in right knee (principal); G89.29 Other chronic pain; M25.511 Pain in right shoulder; M25.512 Pain in left shoulder
CPT/HCPCS: 73030; 73564

== ENCOUNTER → 2024-03-31 12:30 | Outpatient (BNV) | payer MEDICAID, SELFPAY | PROVIDERS: PCP Internal Medicine Geriatric Medicine; Visit Provider Internal Medicine | DX: Z12.31 Encounter for screening mammogram for malignant neoplasm of breast (principal) | CPT/HCPCS: 77063; 77067 ==

== ENCOUNTER 2024-03-31 12:47 | Outpatient (REF) | payer MEDICAID, SELFPAY ==
--- NOTE | ~2024-03-31 | MM_ITS ---
EXAMINATION: MM SCREENING DIGITAL BREAST TOMOSYNTHESIS, BILATERAL CLINICAL INFORMATION: Screening. Asymptomatic. COMPARISON: Mammography: Comparison is made with available priors TECHNIQUE: Digital breast mammography with tomosynthesis is performed in both the craniocaudal and mediolateral oblique views along with computer-aided detection (CAD). FINDINGS: There are scattered areas of fibroglandular density (ACR BI-RADS breast composition Category b). Left: There are no significant masses, abnormal calcifications, or other abnormalities. Right: Grouped calcifications upper outer breast middle and posterior depth. Grouped calcifications lower central breast. No suspicious masses or other abnormal findings. MM/MM tomosynthesis screening BI IMPRESSION: Additional imaging is recommended with magnification views. ASSESSMENT: BI-RADS BI-RADS 0 - Incomplete: Needs additional Imaging. RECOMMENDATION: 1. Additional views of the right breast 2. Targeted ultrasound if warranted after review of the additional views. 3. Radiology department staff will contact the patient for additional imaging. Additional Imaging required This examination should not preclude the clinical evaluation of a suspicious palpable abnormality. This patient's information was entered into a reminder system with a target due date for their next mammogram. Electronically signed by: Deidre Su DO 04/11/2024 10:22 AM EDT
== END 2024-03-31 12:48 | disposition home or self-care (01) ==
LOC: HO.MAMMO 12:47
PROVIDERS: PCP Internal Medicine Geriatric Medicine; Visit Provider Internal Medicine Geriatric Medicine
DX: Z12.31 Encounter for screening mammogram for malignant neoplasm of breast (principal)
CPT/HCPCS: 77063; 77067

== ENCOUNTER 2024-06-23 09:39 | Outpatient (REF) | payer MEDICAID, SELFPAY ==
--- NOTE | ~2024-06-23 | MM_ITS ---
EXAMINATION: MM DIAGNOSTIC DIGITAL BREAST TOMOSYNTHESIS, RIGHT CLINICAL INFORMATION: Call back from screening for grouped calcifications in the right breast. COMPARISON: Mammography: Comparison is made with relevant prior exams. TECHNIQUE: Digital breast mammography with tomosynthesis is performed in both the craniocaudal and mediolateral oblique views along with computer-aided detection (CAD). FINDINGS: There are scattered areas of fibroglandular density (ACR BI-RADS breast composition Category b). Grouped calcifications in the upper outer breast and lower inner breast some of which are coarse and heterogeneous are seen on magnification views some may have been present on prior screening's. No suspicious masses or other abnormal findings. Results are provided to the patient at time of visit by the technologist. MM/MM added views RT IMPRESSION: Grouped calcifications in the upper outer quadrant and lower inner quadrant on magnification views. Recommend 6 month follow-up for further evaluation of stability. ASSESSMENT: BI-RADS BI-RADS 3 - Probably benign finding(s) - 6 month follow-up suggested RECOMMENDATION: 6 Month F/U This patient's information was entered into a reminder system with a target due date for their next mammogram. Electronically signed by: Deidre Su DO 06/23/2024 10:22 AM [facility]
== END 2024-06-23 09:40 | disposition home or self-care (01) ==
LOC: HO.MAMMO 09:39
PROVIDERS: PCP Internal Medicine Geriatric Medicine; Visit Provider Internal Medicine Geriatric Medicine
DX: R92.1 Mammographic calcification found on diagnostic imaging of breast (principal)
CPT/HCPCS: 77065

== ENCOUNTER → 2024-06-23 10:00 | Outpatient (BNV) | payer MEDICAID, SELFPAY | PROVIDERS: PCP Internal Medicine Geriatric Medicine; Visit Provider Internal Medicine | DX: R92.1 Mammographic calcification found on diagnostic imaging of breast (principal) | CPT/HCPCS: 77061; 77065 ==

== ENCOUNTER 2024-10-21 13:05 | Outpatient (REF) | payer MEDICAID, SELFPAY ==
--- OUTSIDE RECORDS SUMMARY | 2024-10-21 15:57 | XMS_ITS | Encounter Summary ---
Author Organization [employer] Address [address] [place] [address] [address] [address] Care Team Providers Care Evaporator Operator Molasses Name Role Phone Name, Jesus VALENTINO Primary Care Provider [phone] Reason for Visit * Reason Onset Date Comments Med Refill 07/10/2023 Encounter Details Date Type Department Care Team ([facility] st Contact Info) Description 07/10/2023 Telephone [facility] [address] [place], [place] [phone] Name, MD Jesus [address] [place] [address] Med Refill Social History Tobacco Use Types Packs/Day Years Used Date Smoking Tobacco: Former Cigarettes Smokeless Tobacco: Never Alcohol Use Standard Drinks/Week Comments Never 0 (1 standard drink = 0.6 oz pur e alcohol) Depression Answer Date Recorded Patient Health Questionnaire-9 Score 0 12/13/2022 Housing Stability Answer Date Recorded What is your housing situation today? I have vega mackey 05/08/[address] you li ve. Do you have problems with any of the following? None of the above 05/08/2023 Food Insecurity Answer Date Recorded Within the past 12 months, y ou worried that your food would run out before you got money to buy more: Never True 05/08/2023 Within the past 12 months,th e food you bought just didn't last and you didn't have enough money to get more: Never True Transportation Answer Date Recorded In the past 12 months, has l ack of transportation kept you from medical appts, meetings, work or from getting things needed for daily living? No 05/08/2023 Utilities Answer Date Recorded In the past 12 months, has t he electric, gas, oil or water company threatened to shut off services in your home? No 05/08/2023 Depression Answer Date Recorded Patient Health Questionnaire-2 Score 0 12/13/2022 Comments Unknown Sex and Gender Information Value Date Recorded Sex Assigned at Female 05/15/2022 10:17 AM EDT Legal Sex Female 10:17 AM EDT Gender Identity Female 05/15/2022 10:17 AM EDT Sexual Orientation Straight 05/15/2022 10 :17 AM EDT documented as of this encounter Miscellaneous Notes * Telephone Encounter - Pascale Cotter RN - 07/10/2023 3:48 PM EST Meds. Que for approval, please review. * Telephone Encounter - Linsey Parker - 07/10/2023 11:53 AM EST TC from pt requesting medication refill. Medications needing refill : oxyCODONE (Roxicodone) 10 MG immediate release tablet [id number] [place] [id number] [address] [facility] documented in this encounter Plan of Treatment Upcoming Encounters Date Type Department Care Team (Late st Contact Info) Description 11/10/2024 11:30 AM EDT Office Visit [facility] [address] [place] [address] Name, MD Jesus [address] [place] [address] 01/05/2025 2:00 PM EDT Office Visit [facility] [address] [place] [address] Mariela Matthew, OD [address] [place] [address] 01/08/2025 2:00 PM EDT Clinical Support [facility] [address] [place] [address] Mindy Dillon, KESHAV documented as of this encounter Visit Diagnoses Not on filedocumented in this encounter Additional Health Concerns Assessment Noted Time PHQ-9 Depression Total Score: 0 12/14/19 2:36 PM EDT documented as of this encounter Care Teams Evaporator Operator Molasses Relationship Specialty Start Date End Date Name, MD Jesus [address] [place] [address] PCP - General Family Medicine 06/03/21 documented as of this encounter
--- OUTSIDE RECORDS SUMMARY | 2024-10-21 15:57 | XMS_ITS | Encounter Summary ---
Author Organization [employer] Address [address] [place] [address] [address] [address] Care Team Providers Care Electric Operator Name Role Phone Name, Jesus VALENTINO Primary Care Provider [phone] Encounter Details Date Type Department Care Team ([facility] Contact Info) Description 08/07/[address] [address] Name, MD Jesus [address] [place] [address] [phone] Social History Tobacco Use Types Packs/Day Years Used Date Smoking Tobacco: Never Smokeless Tobacco: Never Alcohol Use Standard Drinks/Week Comments Never 0 (1 standard drink = 0.6 oz pur e alcohol) Comments Unknown Sex and Gender Information Value Date Recorded Sex Assigned at Female 05/15/2022 10:17 AM EDT Legal Sex Female 10:17 AM EDT Gender Identity Female 05/15/2022 10:17 AM EDT Sexual Orientation Straight 05/15/2022 10 :17 AM EDT COVID-19 Exposure Response Date Recorded In the last 10 days, have bright ziegler been in contact with someone who was confirmed or suspected to have Coronavirus/COVID-19? No / Unsure 08/08/2022 9:08 AM EST documented as of this encounter Plan of Treatment Upcoming Encounters Date Type Department Care Team ([facility] Contact Info) Description 11/10/2024 11:30 AM EDT Office Visit [address] [address] Name, MD Jesus [address] [place] [phone] 01/05/2025 2:00 PM EDT Office Visit [facility] [address] [place] [address] VipulMariela willoughby, OD [address] [place] [address] 01/08/2025 2:00 PM EDT Clinical Support [facility] [address] [place] [address] Mindy Dillon, KESHAV documented as of this encounter Procedures Procedure Name Priority Date/Time Associated Diagnosis Comments MAMMOGRAPHY Routine 08/02/2022 documented in this encounter Results * Mammography (08/02/2022) Mammogram performed Anatomical Region Laterality Modality Other Historical Provider HEALTH MAINTENANCE Final Result documented in this encounter Visit Diagnoses Not on filedocumented in this encounter Additional Health Concerns Assessment Noted Time PHQ-9 Depression Total Score: 0 07/03/20 22 3:22 PM EST documented as of this encounter Care Teams Electric Operator Relationship Specialty Start Date End Date Name, MD Jesus [address] [place] [address] PCP - General Family Medicine 06/03/21 documented as of this encounter
--- OUTSIDE RECORDS SUMMARY | 2024-10-21 15:57 | XMS_ITS | Encounter Summary ---
Author Organization [employer] Address [address] [place] [address] [address] [place] [address] Care Team Providers Care Wind Instrument Repairer Name Role Phone Name, Jesus VALENTINO Primary Care Provider [phone] Encounter Details Date Type Department Care Team (Late st Contact Info) Description 12/08/2022 Abstract [facility] [address] [place] [phone] NameJesus MD [address] [place] [id number] Social History Tobacco Use Types Packs/Day Years [...] AM EDT documented as of this encounter Plan of Treatment Upcoming Encounters Date Type Department Care Team (Late st Contact Info) Description 11/10/2024 11:30 AM EDT Office Visit [facility] [address] [place], [place] [phone] NameJesus MD [address] [place], [place] [phone] 01/05/2025 2:00 PM EDT Office Visit [facility] [address] [place] [phone] Mariela Matthew OD [address] [place] [address] 01/08/2025 2:00 PM EDT Clinical Support [facility] [address] [place] [address] Mindy Dillon, KESHAV documented as of this encounter Visit Diagnoses Not on filedocumented in this encounter Additional Health Concerns Assessment Noted Time PHQ-9 Depression Total Score: 0 07/03/20 22 3:22 PM EST documented as of this encounter Care Teams Wind Instrument Repairer Relationship Specialty Start Date End Date Name, MD Jesus [address] [place] [address] PCP - General Family Medicine 06/03/21 documented as of this encounter
--- OUTSIDE RECORDS SUMMARY | 2024-10-21 15:57 | XMS_ITS | Encounter Summary ---
Author Organization [employer] Address [address] [place] [address] [address] [place] [address] Care Team Providers Care Web Page Developer Name Role Phone Name, Jesus VALENTINO Primary Care Provider [phone] Reason for Visit * Reason Onset Date Comments Referral 02/19/2024 Encounter Details Date Type Department Care Team ([facility] st Contact Info) Description 02/19/2024 Telephone [facility] [address] [place] [address] Name, MD Jesus [address] [place] [address] Referral Social History Tobacco Use Types Packs/Day Years Used Date Smoking Tobacco: Former Cigarettes Smokeless Tobacco: Never Alcohol Use Standard Drinks/Week Comments Never 0 (1 standard drink = 0.6 oz pur e alcohol) Depression Answer Date Recorded Patient Health Questionnaire-9 Score 0 01/16/2024 Patient Health Questionnaire-9 Score 0 01/16/2024 Last PHQ-9: Questionnaire Data Not on file 0 01/16/2024 Housing Stability Answer Date Recorded What is [...] from getting things needed for daily living? Yes, it has kept me from medical appointments or getting medications. 02/14/2024 Utilities Answer Date Recorded In the past 12 months, has t he electric, gas, oil or water company threatened to shut off services in your home? No 05/08/2023 Depression Answer Date Recorded Patient Health Questionnaire-2 Score 0 01/16/2024 Comments Unknown Sex and Gender Information Value Date Recorded Sex Assigned at Female 05/15/2022 10:17 AM EDT Legal Sex Female 10:17 AM EDT Gender Identity Female 05/15/2022 10:17 AM EDT Sexual Orientation Straight 05/15/2022 10 :17 AM EDT documented as of this encounter Miscellaneous Notes * Telephone Encounter - Pascale Cotter RN - 02/19/2024 4:03 PM EDT T/C to pt. Through Livestream id - [id number] for below message, pt. Missed her [facility] apt. And want to re-schedule apt. Pt. Advised to give call to [facility], pt. Verbally greed and understood. RN also called to [facility]. Dept. Office does not need anything from PCP office, just pt. Has to give them call. Pt. Informed. * Telephone Encounter - Vince Sanz - 02/19/2024 2:23 PM EDT Tc from pt requesting referral for radiology to have Mammogram done. If any questions you can contact pt at [phone]. Kazakh Speaker documented in this encounter Plan of Treatment Upcoming Encounters Date Type Department Care Team (Late st Contact Info) Description 11/10/2024 11:30 AM EDT Office Visit [facility] [address] [place] [phone] Name, MD Jesus [address] [place] [address] 01/05/2025 2:00 PM EDT Office Visit [facility] [address] [place], [place] [phone] Mariela Matthew, OD [address] [place] [address] 01/08/2025 2:00 PM EDT Clinical Support [facility] [address] [place], [place] [phone] Mindy Dillon, KESHAV documented as of this encounter Visit Diagnoses Not on filedocumented in this encounter Additional Health Concerns Assessment Noted Time PHQ-9 Depression Total Score: 0 01/16/20 24 3:28 PM EDT documented as of this encounter Care Teams Web Page Developer Relationship Specialty Start Date End Date Name, MD Jesus [address] [place] [address] PCP - General Family Medicine 06/03/21 documented as of this encounter
--- OUTSIDE RECORDS SUMMARY | 2024-10-21 15:57 | XMS_ITS | Clinical Summary ---
Demographics Address [address] [place] [address] Mobile Phone Home Phone Work Phone Email Address Preferred Language es Marital Status Shinto Affiliation Unknown Race Other Race Ethnic Group Unknown Author Organization [employer] Address [address] [place] [address] [address] [place] [address] Care Team Providers Care Aws Architect Name Role Phone Name, Jesus VALENTINO Primary Care Provider [phone] Allergies Active Allergy Reactions Criticality Noted Date Comments Aspirin Itching 10/02/2008 C/o swelling Atorvastatin 10/17/2016 Other reaction(s): muscle pain Liraglutide 08/15/2016 Metformin Hcl 07/11/2011 Diarrhea Shellfish Allergy Anaphylaxis High 10/02/2008 Medications montelukast (Singulair) 10 MG tablet Take 1 tablet by mouth at bed time. Active EPINEPHrine (Epipen) 0.3 MG/0.3ML injection syringe Inject 0.3 mL into the shoulder, thigh, or buttocks. Active venlafaxine XR (Effexor XR) 150 MG 24 hr tablet Take 1 tablet by mouth at bed time. Active Multiple Vitamin (Multi-Vitamin) tablet take 1 tablet by oral route every day with food Active LORazepam (Ativan) 0.5 MG tablet Take 1 tablet by mouth every 8 (eight) hours. Active eszopiclone (Lunesta) 3 MG tablet Take 1 tablet by mouth at bed time. Active butalbital-aceta minophen-caffein e (Fioricet) 50-300-40 MG capsule TAKE 2 CAPSULES BY MOUTH EVERY 12 HOURS NEEDED Active Nebulizer miscIndications: Wheezing,Broncho spasm 1 each if needed in the morning, at noon, in the evening, and at bedtime (wheezing). 1 each 022 Active Respiratory Therapy Supplies (Nebulizer/Tubin g/Mouthpiece) kitIndications:W heezing,Bronchos pasm 1 each every 4 (four) hours if needed (wheezing). 1 kit 022 Active warfarin (Coumadin) 5 MG tablet Take 1 tablet by mouth on Sunday, Sunday, , Sunday and Sunday. Take as directed per After Visit Summary. Active warfarin (Coumadin) 3 MG tablet Take by mouth. Take 1 tablet by moiuth on Tuesdays and Fridays. Take as directed per After Visit Summary. Active Insulin Syringe-Needle U-100 (BD Veo Insulin Syringe U/F) 31G X 15/64 1 ML misc USE 6 TIMES PER DAY 112 each 5 023 Active EPINEPHrine (Epipen) 0.3 MG/0.3ML injection syringe Inject 0.3 mL (0.3 mg) as directed 1 (one) time if needed for anaphylaxis for up to 1 dose. Inject into upper leg. Call 911 after use. 1 each 2 023 Active Blood Glucose Monitoring Suppl (FreeStyle Lite) deviceIndication s:Type 2 diabetes mellitus with other specified complication, with long-term current use of insulin ([facility]) Inject 1 each under the skin 3 times daily. Use to test blood sugar 3x/d as directed 1 each 023 Active bacitracin-polym yxin b (Polysporin) ointment Apply topically 2 times daily. Apply to affected area daily 30 g 023 Active gabapentin (Neurontin) 100 MG capsule Take 3 capsules (300 mg) by mouth every 8 (eight) hours. 270 capsule 024 Active omeprazole (PriLOSEC) 20 MG capsuleIndicatimohit ns:Diabetic gastroparesis associated with type 2 diabetes mellitus (CMS/HCC) TAKE 1 CAPSULE BY MOUTH DAILY 90 capsule 1 024 Active methocarbamol (Robaxin) 500 MG tablet Take 1 tablet (500 mg) by mouth if needed in the morning and at bedtime for muscle spasms for up to 20 days. 40 tablet 024 Active insulin lispro (HumaLOG KWIKPEN) 200 UNIT/ML solution pen-injector penIndications:T ype 2 diabetes mellitus with other specified complication, with long-term current use of insulin (CMS/HCC) SLIDING SCALE PRIOR TO MEALS: 100-150 2u, 151-200 4u, 201-250 6u, 251-300 8u, 301-350 10u, 351-400 12u, ABOVE 401 14u AND CALL MD 15 mL 4 Active mometasone (Elocon) 0.1 % ointment Apply topically Once per day. 45 g 2 024 2024 Active budesonide (Pulmicort) 0.5 MG/2ML nebulizer solution Take 2 mL (0.5 mg) by nebulization 2 times daily. Rinse mouth with water after use to reduce aftertaste and incidence of candidiasis. Do not swallow. 120 mL 2 Active ipratropium-albu terol (Duo-Neb) 0.5-2.5 mg/3 mL nebulizer solutionIndicati ons:Wheezing,Bro nchospasm Take 3 mL by nebulization every 6 (six) hours if needed for wheezing. 180 mL Active losartan (Cozaar) 100 MG tablet TAKE 1 TABLET BY MOUTH EVERY DAY 90 tablet 1 Active glucose blood (FREESTYLE LITE) test strip USE TO TEST BLOOD SUGAR THREE TIMES A DAY 100 each 11 Active diphenhydrAMINE (BENADryl) 25 MG capsule TAKE 1 CAPSULE BY MOUTH at bedtime 30 capsule 3 Active fluticasone (Flonase) 50 MCG/ACT nasal spray Administer 2 sprays into each nostril Once per day. Shake gently. Before first use, prime pump. After use, clean tip and replace cap. 16 g 2 2025 Active cetirizine (ZyrTEC) 10 MG tablet Take 1 tablet (10 mg) by mouth Once per day. 30 tablet 2 025 2024 Active empagliflozin (Jardiance) 10 MG Take 1 tablet (10 mg) by mouth Once per day. 30 tablet 11 025 2025 Active atorvastatin (Lipitor) 40 MG tablet TAKE 1 TABLET BY MOUTH EVERY DAY 90 tablet 1 Active insulin degludec (Tresiba FlexTouch) 200 UNIT/ML injectionIndicat ions:Type 2 diabetes mellitus with other specified complication, with long-term current use of insulin ([facility]) ADMINISTER 56 UNITS UNDER THE SKIN TWICE DAILY 30 mL 4 025 Active oxyCODONE (Roxicodone) 10 MG immediate release tabletIndication s:Low back pain with bilateral sciatica, unspecified back pain laterality, unspecified chronicity Take 1 tablet (10 mg) by mouth every 12 (twelve) hours if needed for severe pain for up to 28 days. 56 tablet 025 2024 Active insulin degludec (Tresiba FlexTouch) 200 UNIT/ML injectionIndicat ions:Type 2 diabetes mellitus with other specified complication, with long-term current use of insulin ([facility]) ADMINISTER 56 UNITS UNDER THE SKIN TWICE DAILY 30 mL 4 024 2024 Discontinued(R eorder (will not trigger notification to Pharmacy)) oxyCODONE (Roxicodone) 10 MG immediate release tabletIndication s:Low back pain with bilateral sciatica, unspecified back pain laterality, unspecified chronicity Take 1 tablet (10 mg) by mouth every 12 (twelve) hours if needed for severe pain for up to 28 days. 56 tablet 025 2024 Discontinued(R eorder (will not trigger notification to Pharmacy)) Active Problems Patient Care Coordination No te Formatting of this note migh t be different from the original. C3/CM Bernadette Anaya RN/ [id number] Angelica Rubi Problem Noted Date Diagnosed Date Subacute cough 02/04/2024 Assessment & Plan (02/04/2024 5:30 PM EDT): I do not think this has developed into pneumonia, while pt has stopped inhalers, pt has nebulizer and is willing to trial budesonide nebulizers with prn duonebs. Follow up in 1 week I encouraged pt to call pulmonary to schedule a visit Colon adenoma 12/08/2022 Dyspareunia 12/08/2022 History of pulmonary embolism 12/08/2022 Low back pain 12/08/2022 Peripheral neuropathy 12/08/2022 Lumbar radiculopathy 12/08/2022 Overactive bladder 12/08/2022 Severe obesity 12/08/2022 Diabetes mellitus 12/08/2022 Assessment & Plan (02/04/2024 5:30 PM EDT): Post prandial spikes, consider meal time coverage Insulin dependent type 2 diabetes mellitus 12/08 Headache 12/08/2022 Fecal incontinence 09/07/2022 Disease due to severe acute respiratory syndrome coronavirus 2 (SARS-CoV-2) 06/23/2022 Overview (12/08/2022): Problem added by Discern Expert Problem added by Discern Expert Dependence on supplemental oxygen 06/17/2022 Fibrosis of lung 06/17/2022 H/O: hysterectomy 06/17/2022 Physical deconditioning 06/17/2022 Postmenopausal bleeding 06/17/2022 Type 2 diabetes mellitus 06/17/2022 Allergic asthma 06/17/2022 Acute deep vein thrombosis of lower limb 022 Chronic pulmonary thromboembolism syndrome 06/04 Assessment & Plan (02/04/2024 5:30 PM EDT): On coumadin Chronic post-thoracotomy pain 06/04/2020 CTEPH (chronic thromboembolic pulmonary hyperten devenrda) 05/19/2020 ILD (interstitial lung disease) 05/07/2020 Diverticulitis of sigmoid colon 10/30/2018 Polyp of colon 06/25/2018 Diverticulitis of large intestine 05/22/2018 Diverticulitis 03/07/2018 Obstructive sleep apnea syndrome 02/11/2018 Whole body pain 10/10/2017 Steatosis of liver 08/15/2017 Clostridium difficile colitis 06/29/2017 Kidney stone 03/20/2017 Peripheral venous insufficiency 01/30/2017 Swelling of lower limb 01/23/2017 Diabetic gastroparesis assoc iated with type 2 diabetes mellitus 08/15/2016 Migraine 05/30/2016 Hypercholesterolemia 09/24/2015 Diabetic polyneuropathy 09/24/2015 Blurring of visual image 09/24/2015 Joint pain 09/24/2015 Uncontrolled type 2 diabetes mellitus 09/24/2015 Essential hypertension 09/24/2015 Diabetic gastroparesis (CMS/HCC) 05/04/2015 Abdominal pain, chronic, generalized 05/04/2015 Polymyalgia rheumatica 04/09/2014 ESR raised 03/27/2014 Chronic pelvic pain in female 11/13/2013 Abnormal urination 11/13/2013 Irritable bowel 09/15/2013 S/P cholecystectomy 06/11/2013 Diabetic neuropathy 04/10/2013 Calcaneal spur of right foot 02/13/2013 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 HTN (hypertension) 07/25/2011 Diabetes mellitus type 2, un controlled, without complications 10/01/2009 Depression 12/24/2008 DJD (degenerative joint disease) of knee 009 High cholesterol 12/24/2008 PILO (obstructive sleep apnea) 12/24/2008 Overview (12/08/2022): Patient admits to noncompliance with the CPAP machine Morbid obesity 10/02/2008 Encounters Date Type Department Care Team Description 10/14/2024 Refill [facility] [address] [place] [address] Jesus Byrd MD Low back pain with bilateral sciatica, unspecified back pain laterality, unspecified chronicity 10/02/2024 Refill [facility] [address] [place] [address] Jesus Byrd MD Type 2 diabetes mellitus with other specified complication, with long-term current use of insulin ([facility]) 09/26/2024 Population Health Risk Score [facility] () Department [address] [place] [phone] Provider, Population Health Generic 09/12/2024 Refill [facility] [address] [place] [address] Jesus Byrd MD Low back pain with bilateral sciatica, unspecified back pain laterality, unspecified chronicity 09/09/2024 Patient Outreach [facility] [address] [place], [place] [id number] Jesus Byrd MD Care Coordination (Outreach) 08/26/2024 10:00 AM EST Procedure Visit [facility] [address] [place] [address] Amy Villegas MD Chronic pain of right knee (Primary Dx) 08/26/2024 Travel 08/25/2024 Travel 08/22/2024 Telephone [facility] [place] [address] Angie Paiz RN 08/22/2024 Travel 08/11/2024 1:00 PM EST Clinical Support [facility] [place] [address] Mindy Dillon RN Chronic pain syndrome (Primary Dx) 08/11/[address] [place] [address] Mindy Dillon, KESHAV Forgot oxycodone today 08/11/2024 Travel 08/11/2024 Telephone [facility] [place] [address] Mindy Dillon RN Recommend WELDING INSTRUCTOR Tier 2 08/08/2024 11:30 AM EST Office Visit [facility] [place] [address] Jesus Byrd MD Type 2 diabetes mellitus with other specified complication, with long-term current use of insulin ([facility]); Essential hypertension; Subacute cough; Chronic pain of right knee 08/07/2024 Outside Procedure [facility] [address] [place] [address] Marko Matthewn, OD Presbyopia (Primary Dx) 08/06/2024 10:45 AM EST Office Visit [facility] [address] [place] [address] Marko Matthewn, OD Regular astigmatism of both eyes (Primary Dx) 08/06/2024 Travel 08/06/2024 Refill [facility] [place] [address] Jesus Byrd MD Low back pain with bilateral sciatica, unspecified back pain laterality, unspecified chronicity 07/31/2024 Telephone [facility] [address] Jesus Byrd MD Nurse Triage from Last 3 Months Immunizations Name Administration Dates Next Due Influenza injectable quadriv alent IIV4 with preservative 04/18/2018,05/01/2016 Influenza injectable quadriv alent preservative free 04/21/2019 Influenza, IIV3, injectable 08/16/2015,1 08/05/2013,04/29/2014,08/25 Influenza, injectable, quadr ivalent, preservative free, pediatric 06/05/2014 Pneumococcal Polysaccharide PPSV23 04/18/2018, TD (adult), 2 Lf tetanus tox oid, preservative free, adsorbed 04/21/2019 Tdap 12/24/2008 Social History Tobacco Use Types Packs/Day Years Used Date Smoking Tobacco: Former Cigarettes Smokeless Tobacco: Never Tobacco Cessation:Counseling Given: Not Answered Alcohol Use Standard Drinks/Week Comments Never 0 [...] Recorded Patient Health Questionnaire-2 Score 0 01/16/2024 Internet Access Answer Date Recorded Internet Access Q1 Yes 03/17/2024 Internet Access Q2 Not on file 03/17/2024 Comments Unknown Sex and Gender Information Value Date Recorded Sex Assigned at Female 05/15/2022 10:17 AM EDT Legal Sex Female 10:17 AM EDT Gender Identity Female 05/15/2022 10:17 AM EDT Sexual Orientation Straight 05/15/2022 10 :17 AM EDT Last Filed Vital Signs Vital Sign Reading Time Taken Comments Blood Pressure 163/83 08/26/2024 10:22 AM EST Pulse 81 08/26/2024 10:22 AM EST Temperature 36.3 ??C (97.3 ??F) 08/26/2024 10:[address] Respiratory Rate 22 08/26/2024 10:22 AM EST Oxygen Saturation 97% 08/26/2024 10:22 AM EST Inhaled Oxygen Concentration - - Weight 112 kg (246 lb) 08/26/2024 10:22 AM EST Height 154.9 cm (5' 1 ) 08/26/2024 10:22 AM EST Body Mass Index 46.48 08/26/2024 10:22 AM EST Plan of Treatment Upcoming Encounters Date Type Department Care Team (Late st Contact Info) Description 11/10/2024 11:30 AM EDT Office Visit [facility] [address] [place] [address] Name, MD Jesus [address] [place] [address] 01/05/2025 2:00 PM EDT Office Visit [facility] [address] [place] [address] Vipul, Mariela, OD [address] [place] [address] 01/08/2025 2:00 PM EDT Clinical Support [facility] [address] [place] [address] Mindy Dillon, RN Health Maintenance Due Date Last Done Comments CT Colonography 1960 FIT DNA/Cologuard 1960 FIT 1960 FOBT 1960 HIV Screening 1960 Sigmoidoscopy 1960 Diabetes: Foot Exam 1970 Hepatitis C Screening 1978 Hepatitis A Vaccines (1 of 2 - Risk 2-dose series) 1979 Zoster Vaccines (1 of 2) 2010 Pneumococcal Vaccine: 50+ Years (2 of 2 - PCV) 04/18/2019 04/18/2018, 08/25/2010 Hepatitis B Vaccines (1 of 3 - Risk 3-dose series) 2020 RSV Patients and Patients Aged 60 years or older (1 - Risk 60-74 years 1-dose series) 2020 COVID-19 Vaccine ( season) 2024 Influenza Vaccine (#1) 2024 9, 04/18/2018, 05/01/2016, Additional history exists Diabetes: Urine Protein Screening 10/18/2024 10/19/2023, 12/13/2022, 11/24/2020, Additional history exists Lipid Panel 10/18/2024 10/19/2023, 11/15, 11/24/2020 Diabetes: Hemoglobin A1C 11/06/2024 025, 01/16/2024, 10/09/2023, Additional history exists Diagnostic Breast Imaging 12/22/20242023, 08/02/2022, 05/27/2021 Alcohol/Substance Use Screening 01/15/2025 01/16/2024 Depression Screening 01/15/2025 01/16/2024, 01/16/20 24 SDOH Screening 02/13/2025 02/14/2024 Eye Exam 06/26/2025 06/26/2024, 06/15, 06/26/2024, Additional history exists Tobacco Screening 06/27/2025 06/27/2024 Cervical Cancer Screening 11/11/2026 HPV/Cotest 11/11/2026 Pap Smear 11/11/2026 11/11/2021 Colonoscopy 03/31/2028 03/31/2021 Colorectal Cancer Screening 03/31/2028 DTaP/Tdap/Td Vaccines (3 - Td or Tdap) 04/21/2029 04/21/2019, 12/24/2008 HIB Vaccines Aged Out No longer eligi ble based on patient's age to complete this topic HPV Vaccines Aged Out No longer eligi ble based on patient's age to complete this topic IPV Vaccines Aged Out No longer eligi ble based on patient's age to complete this topic Meningococcal Vaccine Aged Out No anselmo maynor eligible based on patient's age to complete this topic RSV under 20 months Aged Out No longe r eligible based on patient's age to complete this topic Rotavirus Vaccines Aged Out No longer eligible based on patient's age to complete this topic Procedures Procedure Name Priority Date/Time Associated Diagnosis Comments POCT CRISTY-14 URINE DRUG SCREEN Routine 08/11/2024 1:33 PM EST Chronic pain syndrome POCT GLYCATED HEMOGLOBIN, TOTAL Routine 08/08/2024 12:01 PM EST Type 2 diabetes mellitus with other specified complication, with long-term current use of insulin (CMS/[facility]) POCT GLUCOSE Routine 08/08/2024 12:01 PM EST Type 2 diabetes mellitus with other specified complication, with long-term current use of insulin (CMS/[facility]) BI MAMMOGRAM ADDITIONAL VIEWS RIGHT Routine 06/23/2024 9:50 AM EST ALBUMIN, RANDOM URINE W/CREATININE Routine 10/19/2023 12:52 PM EDT Type 2 diabetes mellitus with other specified complication, with long-term current use of insulin (CMS/[facility]) LIPID PANEL, STANDARD Routine 10/19/2023 12:48 PM EDT Type 2 diabetes mellitus with other specified complication, with long-term current use of insulin (CMS/[facility]) PAP/HPV Routine 11/11/2021 COLONOSCOPY Routine 03/31/2021 from Last 3 Months or Most Recently Relevant to Health Maintenance Results * POCT CRISTY-14 Urine Drug Screen (08/11/2024 1:33 PM EST) Oxycodone Screen, Urine Positive Urine Urine specimen obtained by clean catch procedure / Unknown 08/11/2024 1:33 PM EST Mindy Rivera RN - 08/11/2024 1:33 PM EST UTOX cup Lot#[id number] Exp. 04/09/26 Internal Pass Control Jesus Byrd MD POINT OF CARE TEST ENTER/EDIT OR DERABLES Final Result * (ABNORMAL) POCT HGB A1C (08/08/2024 12:01 PM EST) Pathologist [facility] Hemoglobin A1C 7.8(A) 4.0 - 6.0 % QC Media Lot # [id number] Lot# Expiration Date 71,626 Blood 08/08/2024 12:0 1 PM EST Jesus Name POINT OF CARE TEST ENTER/EDIT OR DERABLES Final Result * POCT Glucose (08/08/2024 12:01 PM EST) Pathologist [facility] Glucose Blood, POC 159 60 - 200 mg/dL QC Media Lot # [id number] Lot# Expiration Date 53,025 Blood Capillary blood specimen / Unknown 08/08/2024 12:01 PM EST Jesus Name POINT OF CARE TEST ENTER/EDIT OR DERABLES Final Result * BI Mammogram Additional Views Right (06/23/2024 9:50 AM EST) Anatomical Region Laterality Modality Breast Right Mammography 06/23/2024 9:50 AM EST Narrative 06/23/2024 10:25 AM EST ? [facility] [place] ? [address] ?[place] [address] ? Mammography Report ? Signed ? Patient: Donnie Nathan,Cynthia ?MR#: [id number] ?? [id number] ? : 1960 ?Acct:[id number] ? Age/Sex: 63 / F ?ADM Date: 12/09/24 ? Loc: HO.MAMMO ? Attending Dr: Jesus Byrd MD ? Ordering Physician: Rochelle,Jesus VALENTINO ?Results: 3.6MProbab ?? ly Benign Finding - Short 6 M F/U Suggested ? Date of Service: 06/23/24 ?Follow Up: 6 Month F/U ? Procedure(s): MM added views RT ?? Accession Number(s): [id number] ? cc: Rochelle,Jesus VALENTINO ? EXAMINATION: ?? MM DIAGNOSTIC DIGITAL BREAST TOMOSYNTHESIS, RIGHT ? CLINICAL INFORMATION: ? Call back from screening for grouped calcifications in the right ?? breast. ? COMPARISON: ?? Mammography: Comparison is made with relevant prior exams. ? TECHNIQUE: ?? Digital breast mammography with tomosynthesis is performed in both the ?? craniocaudal and mediolateral oblique views along with computer-aided ?? detection (CAD). ? FINDINGS: ?? There are scattered areas of fibroglandular density (ACR BI-RADS breast ?? composition Category b). ?? Grouped calcifications in the upper outer breast and lower inner breast ?? some of which are coarse and heterogeneous are seen on magnification ?? views some may have been present on prior screening's. ? No suspicious masses or other abnormal findings. ? Results are provided to the patient at time of visit by the ?? technologist. ? MM/MM added views RT ?? IMPRESSION: ?? Grouped calcifications in the upper outer quadrant and lower inner ?? quadrant on magnification views. Recommend 6 month follow-up for ?? further evaluation of stability. ? ASSESSMENT: ? BI-RADS BI-RADS 3 - Probably benign finding(s) - 6 month follow-up ?? suggested ? RECOMMENDATION: ?? 6 Month F/U ? This patient's information was entered into a reminder system with a ?? target due date for their next mammogram. ? Electronically signed by: ??Deidre Su DO ??06/23/2024 10:22 AM EST ? Dictated By: ?Deidre Su DO ? Signed By: ?<Electronically signed by Deidre Su, DO in OV> ? 06/23/24 1022 ? DD/ 0950 ? TD/TT: 06/23/24 1007 ? Hand Stamper: ? Procedure Note Donotvahidinterpreter, Image - 06/23/2024 [place] [facility] [address] [place] [address] Mammography Report Signed Patient: Nikita Mueller#: [id number] : 1Acct:[id number] Age/Sex: 63 / FADM Date: 06/23/24 Loc: HO.MAMMO Attending Dr: Jesus Byrd MD Ordering Physician: Jesus Byrdults: 3.6MProbab ly Benign Finding - Short 6 M F/U Suggested Date of Service: 06/23/24Follow Up: 6 Month F/U Procedure(s): MM added views RT Accession Number(s): [id number] cc: Jesus Byrd MD EXAMINATION: MM DIAGNOSTIC DIGITAL BREAST TOMOSYNTHESIS, RIGHT CLINICAL INFORMATION: Call back from screening for grouped calcifications in the right breast. COMPARISON: Mammography: Comparison is made with relevant prior exams. TECHNIQUE: Digital breast mammography with tomosynthesis is performed in both the craniocaudal and mediolateral oblique views along with computer-aided detection (CAD). FINDINGS: There are scattered areas of fibroglandular density (ACR BI-RADS breast composition Category b). Grouped calcifications in the upper outer breast and lower inner breast some of which are coarse and heterogeneous are seen on magnification views some may have been present on prior screening's. No suspicious masses or other abnormal findings. Results are provided to the patient at time of visit by the technologist. MM/MM added views RT IMPRESSION: Grouped calcifications in the upper outer quadrant and lower inner quadrant on magnification views. Recommend 6 month follow-up for further evaluation of stability. ASSESSMENT: BI-RADS BI-RADS 3 - Probably benign finding(s) - 6 month follow-up suggested RECOMMENDATION: 6 Month F/U This patient's information was entered into a reminder system with a target due date for their next mammogram. Electronically signed by: Deidre Su DO 06/23/2024 10:22 AM EST Dictated By: Deidre Su DO Signed By: <Electronically signed by Deidre Su DO in OV> 06/23/24 1022 DD/ 0950 TD/TT: 06/23/24 1007 Hand Stamper: us Jesus Byrd MD IMG BI PROCEDURES Final Result * (ABNORMAL) Albumin, Random Urine W/Creatinine (10/19/2023 12:52 PM EDT) Creatinine, Urine 120.05 mg/dL [facility] Microalbumin Urine 189.0 mg/L [facility] Microalbum Creatinine Ratio Ur 157.4(H) <30 ug/mg cr [facility] Comment:Albumin/Creatinine R atio Reference Ranges: Normal: < 30 ug/mg creatinine Microalbuminuria: 30 - 300 ug/mg creatinineClinical Albuminuria: > 300 ug/mg creatinine Urine (Urine, Random) 10/19/2023 12:52 PM EDT 10/19/2023 4:04 PM EDT us Jesus Byrd MD LAB URINE ORDERABLES Final Resul t [facility] [address] [place] [address] [phone] * (ABNORMAL) Lipid Panel, Standard (10/19/2023 12:48 PM EDT) Triglycerides 142 <150 mg/dL [facility] Comment:Desirable Triglyceri de: less than 150 mg/dLBorderline High Triglyceride 150-199 mg/dLHigh Triglyceride: 200-499 mg/dLVery High Triglyceride: greater than or equal to 5OO mg/dL Cholesterol 227(H) <200 mg/dL [facility] Comment:Desirable Cholestero l: less than 200 mg/dLBorderline High Cholesterol: 200-239 mg/dLHigh Cholesterol: greater than 239 mg/dL LDL Cholesterol Calculated 156(H) <100 mg/dL [facility] Comment:Desirable LDL: less than 100 mg/dLNear Optimal/Above Optimal LDL: 110- 129 mg/dLBorderline High LDL: 130-159 mg/dLHigh LDL: 160-189 mg/dLVery High LDL: greater than or equal to 190 mg/dL HDL Cholesterol 43 >40 mg/dL [facility] Comment:Desirable HDL: great er than 40 mg/dL Note: This HDL assay may give artificially low results in patients with liver disease. Blood Venous blood specimen / Unknown 10/19/2023 12:48 PM EDT 10/19/2023 4:06 PM EDT Jesus Byrd MD LAB BLOOD ORDERABLES Final Resul t [facility] [address] [place] [phone] * Pap Smear (11/11/2021) Pap smear performed Historical Provider HEALTH MAINTENANCE Final Result * Colonoscopy (03/31/2021) Colonoscopy normal Comment:Repeat in 7 years Historical Provider HEALTH MAINTENANCE Edited Result - Final from Last 3 Months or Most Recently Relevant to Health Maintenance Insurance [employer] [address] [place] [address] 1 [place] [address] 1 [place] [address] Care Teams Aws Architect Relationship Specialty Start Date End Date Name, MD Jesus [address] [place] [id number] PCP - General Family Medicine 06/03/21
--- OUTSIDE RECORDS SUMMARY | 2024-10-21 15:57 | XMS_ITS | Clinical Summary ---
Author Organization [facility] Address [address] [place] [address] Care Team Providers Care Weight Control Lecturer Name Role Phone Name, Jesus VALENTINO Primary Care Provider [phone] Surgical History Surgery Date Site/Laterality Comments APPENDECTOMY PROCEDURE: HISTORICAL APPENDECTOMY; COMMENT: open TUBAL LIGATION PROCEDURE: HISTORICAL TUBAL LIGATION; COMMENT: lap CHOLECYSTECTOMY PROCEDURE: HISTORICAL CHOLECYSTECTOMY; COMMENT: lap COLONOSCOPY 01/26/2011 PROCEDURE: [place] COLONOSCOPY FLX DX W/COLLJ SPEC WHEN PFRMD; COMMENT: Normal OTHER SURGICAL HISTORY 04/2012(Dr Au) PROCEDURE: ---- OTHER ----; COMMENT: d/c and edocervical polyp removed (benigng) CATARACT EXTRACTION PROCEDURE: HISTORICAL CATARACT REMOVAL; COMMENT: 2010 OU HYSTERECTOMY PROCEDURE: HISTORICAL HYSTERECTOMY; COMMENT: vaginal BLADDER SURGERY PROCEDURE: HISTORICAL BLADDER SURGERY; COMMENT: suspension. vaginal OTHER SURGICAL HISTORY Bilateral PROCEDURE: [place] LIGATION/BIOPSY TEMPORAL ARTERY OTHER SURGICAL HISTORY PROCEDURE: HEART CATHETER & ANGIOGRA; COMMENT: several years ago Medical History Medical History Date Comments Type II or unspecified type diabetes mellitus with unspecified complication, not stated as uncontrolled DX:Type II or unspecified ty pe diabetes mellitus with unspecified complication, not stated as uncontrolled Unspecified essential hypertension DX:Unspecified essential hypertension Preop cardiovascular exam 04/19/2012 DX:Pre op cardiovascular exam S/P Ercp 09/13/2012 DX:S/P ERCP 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 DX:D uodenal papillary stenosis Pancreatitis 10/18/2012 DX:Pancreatitis Family History Medical History Relation Name Comments Blindness Aunt Cataracts Neg Hx Glaucoma Neg Hx Macular degeneration Neg Hx Strabismus Neg Hx Relation Name Status Comments Aunt Brother esrd Daughter Alive Father cad Mother cad, htn Sister Alive esrd on HD Son Alive Social History Tobacco Use Types Packs/Day Years Used Date Smoking Tobacco: Former Smokeless Tobacco: Never Alcohol Use Standard Drinks/Week Comments No 0 (1 standard drink = 0.6 oz pur e alcohol) Comments Unknown Sex and Gender Information Value Date Recorded Sex Assigned at Not on file Legal Sex Female 2:35 PM EST Gender Identity Not on file Sexual Orientation Not on file Obstetrics History Plan of Treatment Health Maintenance Due Date Last Done Comments Cervical Cancer Screening: P ap Smear 1981 Pneumococcal Vaccine: 50+ Ye ars (1 of 1 - PCV) 2010 Zoster Vaccines (1 of 2) 2010 Breast Cancer Screening 05/31/2018 05/31/2016 DTaP,Tdap,and Td Vaccines (2 - Td or Tdap) 12/24/2018 12/24/2008 COVID-19 Vaccine ( - 2023-2 5 season) 2024 Influenza Vaccine (#1) 2024 06/05/2014 RSV Immunization Adult Patie nts (1 - 1-dose 75+ series) 2035 HIB Vaccines Aged Out No longer eligi ble based on patient's age to complete this topic HPV Vaccines Aged Out No longer eligi ble based on patient's age to complete this topic Hepatitis A Vaccines Aged Out No long er eligible based on patient's age to complete this topic Hepatitis B Vaccines Aged Out No long er eligible based on patient's age to complete this topic IPV Vaccines Aged Out No longer eligi ble based on patient's age to complete this topic MMR Vaccines Aged Out No longer eligi ble based on patient's age to complete this topic Meningococcal ACWY Vaccine Aged Out N o longer eligible based on patient's age to complete this topic Meningococcal B Vaccine Aged Out No l onger eligible based on patient's age to complete this topic Pneumococcal Vaccine: Pediat rics (0 to 5 Years) and At-Risk Patients (6 to 64 Years) Aged Out No longer eligi ble based on patient's age to complete this topic RSV Immunization Patients Un sehrrie 20 months Aged Out No longer eligible b ased on patient's age to complete this topic Varicella Vaccines Aged Out No longer eligible based on patient's age to complete this topic Procedures Procedure Name Priority Date/Time Associated Diagnosis Comments DX MAMMO INCL CAD BI Routine 05/31/2016 2:22 PM EST Mammographic microcalcification found on diagnostic imaging of breast from Last 3 Months or Most Recently Relevant to Health Maintenance Results * DX MAMMO INCL CAD BI (05/31/2016 2:22 PM EST) Anatomical Region Laterality Modality Mammography 05/25/2015 2:30 PM EST Narrative 08/25/2017 2:57 PM EST This is a summary report. The complete report is available in the patient's medical record. If you cannot access the medical record, please contact the sending organization for a detailed fax or copy. Addendum: Patient has not responded to radiology department efforts to schedule one year follow-up mammogram for probably benign left breast calcifications. Bilateral diagnostic digital mammogram: History: Follow-up left breast calcifications Bilateral diagnostic digital mammogram interpreted with the benefit of CAD and compared with prior studies including magnification views left breast calcifications on 01/19/2015, 05/25/2015 and 12/10/2015. Breast tissue pattern is composed of scattered fibroglandular densities. No dominant mass lesion is seen. Focal grouping of calcifications upper-outer quadrant left breast increasingly coarse in appearance when compared with prior studies suggesting evolving dystrophic or vascular calcifications. Impression: Probably benign finding. Follow-up study 1 year to include magnification views left breast calcifications and bilateral routine mammographic views. BI-RADS 3: Probably benign finding Procedure Note Sreedhar Montero MD - 09/13/2023 This is a summary report. The complete report is available in thepatient's medical record. If you cannot access the medical record, pleasecontact the sending organization for a detailed fax or copy. Addendum: Patient has not responded to radiology department efforts toschedule one year follow-up mammogram for probably benign left breast calcifications. Bilateral diagnostic digital mammogram: History: Follow-up left breast calcifications Bilateral diagnostic digital mammogram interpreted with the benefit of CADand compared with prior studies including magnification views left breastcalcifications on 01/19/2015, 05/25/2015 and 12/10/2015. Breast tissuepattern is composed of scattered fibroglandular densities. No dominant mass lesion is seen. Focal grouping of calcificationsupper-outer quadrant left breast increasingly coarse in appearance whencompared with prior studies suggesting evolving dystrophic or vascularcalcifications. Impression: Probably benign finding. Follow-up study 1 year to includemagnification views left breast calcifications and bilateral routinemammographic views. BI-RADS 3: Probably benign finding Jesus Byrd MD IM BI PROCEDURES Edited Result - Final from Last 3 Months or Most Recently Relevant to Health Maintenance Care Teams Weight Control Lecturer Relationship Specialty Start Date End Date Name, MD Jesus [address] [place], [place] PCP - General Internal Medicine 12/11/18
--- OUTSIDE RECORDS SUMMARY | 2024-10-21 15:57 | XMS_ITS | Clinical Summary ---
Author Organization [facility] Address [address] [place] [address] Care Team Providers Care Pest Control Pilot Name Role Phone Unavailable Primary Care Provider Unavailabl e Social History Tobacco Use Types Packs/Day Years Used Date Smoking Tobacco: Never Assessed Sex and Gender Information Value Date Recorded Sex Assigned at Not on file Gender Identity Not on file Sexual Orientation Not on file Plan of Treatment Health Maintenance Due Date Last Done Comments Hepatitis C Virus Screening 1960 DTaP/Tdap/Td Vaccines (1 - Tdap) 1979 Pneumococcal Vaccines 50+ (1 of 1 - PCV) 2010 Zoster (Shingles) Vaccine (1 of 2) 2010 COVID-19 Vaccine ( - 2023-2 5 season) 2024 RSV Vaccine 60 years and old er and Patients (1 - 1-dose 75+ series) 2035 HIV Screening Completed 09/24/2013 Hepatitis B Vaccines Aged Out No long er eligible based on patient's age to complete this topic Pneumococcal Vaccine: Pediat luca (0-5 Years) and At-Risk Patients (6 to 49 Years) Aged Out No longer eligible b ased on patient's age to complete this topic Procedures Procedure Name Priority Date/Time Associated Diagnosis Comments [facility] HIV 1/2 AG/AB CMIA REFLEX TO CONFIRMATION. Routine 09/24/2013 12:10 AM EDT from Last 3 Months or Most Recently Relevant to Health Maintenance Results * HIV 1/2 Ag/Ab Cmia Reflex To Confirmation. (09/24/2013 12:10 AM EDT) HIV 1/2 Ag/Ab CMIA Negative Results show no evidence of infection by HIV 1/2. If clinically indicated, repeat CMIA or test by nucleic acid amplification. Performed at [facility] [place], [place], [place] ?? [place] License No. [id number] ?? CLIA No. [id number] [facility] 09/24/2013 12:1 0 AM EDT Michael Augustin MD HX LAB SUNQUEST from Last 3 Months or Most Recently Relevant to Health Maintenance
--- OUTSIDE RECORDS SUMMARY | 2024-10-21 15:57 | XMS_ITS | Encounter Summary ---
Author Organization [employer] Address [address] [place] [address] [address] [place] [address] Care Team Providers Care Home Improvement Advisor Name Role Phone Name, Jesus VALENTINO Primary Care Provider [phone] Reason for Visit * Reason Onset Date Comments Referral 08/21/2022 Encounter Details Date Type Department Care Team ([facility] st Contact Info) Description 08/21/2022 Telephone [facility] [address] [place], [place] [phone] Name, MD Jesus [address] [place] [address] Referral Social History Tobacco Use Types Packs/Day [...] Recorded In the last 10 days, have yo karlie been in contact with someone who was confirmed or suspected to have Coronavirus/COVID-19? No / Unsure 08/08/2022 9:08 AM EST documented as of this encounter Miscellaneous Notes * Telephone Encounter - Royce Sims - 08/21/2022 1:02 PM EST Tc from pt requesting referral update on Optometry, done on 08/06/2022. Please contact pt at [phone] Amharic Speaker. documented in this encounter Plan of Treatment Upcoming Encounters Date Type Department Care Team (Late st Contact Info) Description 11/10/2024 11:30 AM EDT Office Visit [facility] [address] [place] [address] Name, MD Jesus [address] [place] [address] 01/05/2025 2:00 PM EDT Office Visit [facility] OPTOMETRY [address] [place] [address] Mariela Matthew, OD [address] [place] [address] 01/08/2025 2:00 PM EDT Clinical Support [facility] [address] [place] [address] Mindy [facility], KESHAV documented as of this encounter Visit Diagnoses Not on filedocumented in this encounter Additional Health Concerns Assessment Noted Time PHQ-9 Depression Total Score: 0 07/03/20 22 3:22 PM EST documented as of this encounter Care Teams Home Improvement Advisor Relationship Specialty Start Date End Date Jesus Byrd MD [address] [place] [address] PCP - General Family Medicine 06/03/21 documented as of this encounter
--- OUTSIDE RECORDS SUMMARY | 2024-10-21 15:57 | XMS_ITS | Encounter Summary ---
Demographics Address [address] [facility] [address] [place] [address] Mobile Phone Home Phone Work Phone Email Address Preferred Language es Marital Status Sikh Affiliation Unknown Race Other Race Ethnic Group Unknown Author Organization [employer] Address [address] [place] [address] [address] [place] [address] Care Team Providers Care Risk Management Director Name Role Phone Name, Jesus VALENTINO Primary Care Provider [phone] Encounter Details Date Type Department Care Team (Late st Contact Info) Description 06/03/2023 Abstract [facility] [address] [place], [place] [phone] Haley Cain Social History Tobacco Use Types Packs/Day Years [...] Description 11/10/2024 11:30 AM EDT Office Visit [facility] [address] [place] [address] NameJesus MD [address] [place] [address] 01/05/2025 2:00 PM EDT Office Visit [facility] OPTOMETRY [address] [place] [address] Vipul, Mariela, OD [address] [place] [address] 01/08/2025 2:00 PM EDT Clinical Support [facility] [address] [place] [address] Mindy [facility], KESHAV documented as of this encounter Visit Diagnoses Not on filedocumented in this encounter Additional Health Concerns Assessment Noted Time PHQ-9 Depression Total Score: 0 12/14/19 23 2:36 PM EDT documented as of this encounter Care Teams Risk Management Director Relationship Specialty Start Date End Date Jesus Byrd MD [address] [place] [address] PCP - General Family Medicine 06/03/21 documented as of this encounter
--- OUTSIDE RECORDS SUMMARY | 2024-10-21 15:57 | XMS_ITS | Encounter Summary ---
Demographics Address [address] [facility] [address] [place] [address] Mobile Phone Home Phone Work Phone Email Address Preferred Language es Marital Status Hoahaoism Affiliation Unknown Race Other Race Ethnic Group Unknown Author Organization [employer] Address [address] [place] [address] [address] [address] Care Team Providers Care Jewelry Inspector Name Role Phone Name, Jesus VALENTINO Primary Care Provider [phone] Encounter Details Date Type Department Care Team ([facility] st Contact Info) Description 08/09/2023 Orders Only [facility] [address] [place], [place] [phone] Derrek Lincoln MD [address] [place] [address] Social History Tobacco Use Types Packs/Day Years [...] Description 11/10/2024 11:30 AM EDT Office Visit [facility] [address] [place] [address] NameJesus MD [address] [place] [address] 01/05/2025 2:00 PM EDT Office Visit [facility] OPTOMETRY [address] [place] [address] Vipul, Mariela, OD [address] [place] [address] 01/08/2025 2:00 PM EDT Clinical Support [facility] [address] [place] [address] Mindy Dillon, RN documented as of this encounter Visit Diagnoses Not on filedocumented in this encounter Additional Health Concerns Assessment Noted Time PHQ-9 Depression Total Score: 0 12/14/19 23 2:36 PM EDT documented as of this encounter Care Teams Jewelry Inspector Relationship Specialty Start Date End Date Name, MD Jesus [address] [place] [phone] PCP - General Family Medicine 06/03/21 documented as of this encounter
[2024-10-21 16:25] LABS: Rheumatoid Factor < 13.0 IU/mL (<15.0)
[2024-10-21 16:26] LABS: Anion Gap 11 (12-20); Blood Urea Nitrogen 12 mg/dL (9-16); Calcium 9.1 mg/dL (8.4-10.2); Carbon Dioxide 27 mmol/L (22-29); Chloride 103 mmol/L (96-108); Estimated Glomerular Filt Rate > 60; Glucose Random 84 mg/dL (60-115); Potassium 4.2 mmol/L (3.3-5.1); Sodium 137 mmol/L (135-145)
[2024-10-21 16:52] LABS: Erythrocyte Sedimentation Rate 86 MM/HR (0-20)
== END 2024-10-21 13:06 | disposition home or self-care (01) ==
LOC: HO.HHCL 13:05
PROVIDERS: Visit Provider Internal Medicine Geriatric Medicine
DX: E11.69 Type 2 diabetes mellitus with other specified complication (principal); Z79.4 Long term (current) use of insulin; I10 Essential (primary) hypertension; M54.42 Lumbago with sciatica, left side; M54.41 Lumbago with sciatica, right side; M25.511 Pain in right shoulder; G89.29 Other chronic pain; M25.512 Pain in left shoulder; M25.561 Pain in right knee
CPT/HCPCS: 36415; 80048; 85652; 86431

== ENCOUNTER 2025-03-02 15:25 | Outpatient (REF) | payer MEDICAID, SELFPAY ==
--- OUTSIDE RECORDS SUMMARY | 2025-03-02 15:56 | XMS_ITS | Encounter Summary ---
Author Organization [employer] Address [address] [place] [address] [address] [place] [address] Care Team Providers Care Mortgage Field Inspector Name Role Phone Name, Jesus VALENTINO Primary Care Provider [phone] Encounter Details Date Type Department Care Team (Late st Contact Info) Description 12/08/2022 Abstract [facility] [address] [place] [address] Name, MD Jesus [address] [place] [phone] Social History Tobacco Use Types Packs/Day Years [...] Care Team (Late st Contact Info) Description 03/23/2025 11:00 AM EDT Medication Management [facility] [address] [place] [address] Romi Carney, GustavoD [address] [place] [address] 04/27/2025 1:00 PM EDT Clinical Support [facility] [address] [place] [address] Mindy [facility], RN 05/26/2025 3:30 PM EST Office Visit [facility] MED[facility] [address] [place] [address] Name, MD Jesus [address] [place] [address] 07/07/2025 3:00 PM EST Office Visit [facility] OPTOMETRY [address] [place], [place] [phone] Mariela Matthew, OD [address] [place] [address] documented as of this encounter Visit Diagnoses Not on filedocumented in this encounter Additional Health Concerns Assessment Noted Time PHQ-9 Depression Total Score: 0 07/03/20 22 3:22 PM EST documented as of this encounter Care Teams Mortgage Field Inspector Relationship Specialty Start Date End Date Name, MD Jesus [address] [place] [address] PCP - General Family Medicine 06/03/21 documented as of this encounter
--- OUTSIDE RECORDS SUMMARY | 2025-03-02 15:56 | XMS_ITS | Clinical Summary ---
Author Organization [facility] Address [address] [place] [address] Care Team Providers Care Jury Consultant Name Role Phone Unavailable Primary Care Provider Unavailabl e Social History Tobacco Use Types Packs/Day Years Used Date Smoking Tobacco: Never Assessed Comments Unknown Sex and Gender Information Value Date Recorded Sex Assigned at Not on file Legal Sex Female 1:31 PM EDT Gender Identity Not on file Sexual Orientation [...] Procedure Name Priority Date/Time Associated Diagnosis Comments [facility] HIV 1/2 AG/AB CMIA REFLEX TO CONFIRMATION. [...] nucleic acid amplification. Performed at [facility], [place], [place] License No. [id number] CLIA No. [id number] [facility] 09/24/2013 12:1 0 AM EDT us Michael Augustin MD HX LAB Final Result [facility] from Last 3 Months or Most Recently Relevant to Health Maintenance
--- OUTSIDE RECORDS SUMMARY | 2025-03-02 15:56 | XMS_ITS | Clinical Summary ---
Author Organization [facility] Address [address] [place] [address] Care Team Providers Care Manager Payment Name Role Phone Name, Jesus VAELNTINO Primary Care Provider [phone] Surgical History Surgery Date Site/Laterality Comments APPENDECTOMY PROCEDURE: HISTORICAL APPENDECTOMY; COMMENT: open TUBAL LIGATION PROCEDURE: HISTORICAL TUBAL LIGATION; COMMENT: lap CHOLECYSTECTOMY PROCEDURE: HISTORICAL CHOLECYSTECTOMY; COMMENT: lap COLONOSCOPY 01/26/2011 PROCEDURE: [place] COLONOSCOPY FLX DX W/COLLJ SPEC WHEN PFRMD; COMMENT: Normal OTHER SURGICAL HISTORY 04/2012(Dr Au) PROCEDURE: ---- OTHER ----; COMMENT: d/c and edocervical polyp removed (benigng) CATARACT EXTRACTION PROCEDURE: HISTORICAL CATARACT REMOVAL; COMMENT: 2010 OU HYSTERECTOMY PROCEDURE: HISTORICAL HYSTERECTOMY; COMMENT: vaginal BLADDER SURGERY PROCEDURE: HISTORICAL BLADDER SURGERY; COMMENT: suspension. vaginal OTHER SURGICAL HISTORY Bilateral PROCEDURE: [place] LIGATION/BIOPSY TEMPORAL ARTERY OTHER SURGICAL HISTORY PROCEDURE: [...] Vaccine ( - 2023-2 5 season) 2024 Depression Screening 07/16/2024 Influenza Vaccine (#1) 2025 06/05/2014 RSV Immunization Adult Patie nts (1 [...] complete this topic RSV Immunization Patients Un sherrie 20 months Aged Out No longer eligible [...] routinemammographic views. BI-RADS 3: Probably benign finding us Jesus Name MD [facility] BI PROCEDURES Edited Result - Final from Last 3 Months or Most Recently Relevant to Health Maintenance Care Teams Manager Payment Relationship Specialty Start Date End Date Name, MD Jesus 4 [facility] [place] PCP - General Internal Medicine 12/11/18
[2025-03-02 17:38] LABS: Microalbum/Creatinine Ratio Ur 97.6 ug/mg cr (<30)
== END 2025-03-02 15:26 | disposition home or self-care (01) ==
LOC: HO.HHCL 15:25
PROVIDERS: PCP Internal Medicine Geriatric Medicine; Visit Provider Internal Medicine Geriatric Medicine
DX: E11.69 Type 2 diabetes mellitus with other specified complication (principal); Z79.4 Long term (current) use of insulin
CPT/HCPCS: 82043; 82570